=== PATIENT | female | born 1970 | race Caucasian/White ===

== ENCOUNTER 2020-11-02 16:45 | Emergency (ER) | payer OTHER, SELFPAY ==
[2020-11-02 16:54] VITALS: BP 124/88; PULSE 97; O2SAT 98
[2020-11-02 18:02] VITALS: BP 124/85; PULSE 98; RESP 18; TEMP 37; O2SAT 95; BMI 53.6
--- NOTE | 2020-11-02 18:09 | ED.GENADULT ---
HPI - General Adult General Chief complaint: General Medical Stated complaint: INSOMNIA X 5 DAYS,TOOK EXTRA SLEEP MEDS Time Seen by Provider: 11/02/20 18:09 History of Present Illness HPI narrative: Patient 50 years old having difficulty sleeping. Patient has not been able to sleep for the last few days. No fever no chills no cough no congestion. Patient normally is on benzo. Patient wanted more benzodiazepine. Related Data Previous Rx's Medication Instructions Recorded cromolyn 4 % eye drops 1 drp OPHTHALMIC (EYE) QID #10 ml 06/26/20 neomycin 3.5 mg/g-polymyxin B 1 applic OPHTHALMIC (EYE) TID #3.5 06/26/20 10,000 unit/g-dexameth 0.1 % eye g oint sumatriptan succinate 50 mg tablet 50 mg PO Q2-4H PRN 30 Days #9 tab 07/02/20 Allergies Allergy/AdvReac Type Severity Reaction Status Date / Time umeclidinium Allergy Unknown nausea Verified 09/15/20 06:49 [Incruse Ellipta] varenicline [From Chantix] Allergy Unknown Palpitation Verified 09/15/20 06:49 s,headache Review of Systems Review of Systems: Constitutional: No Weight loss, No Fever, No Chills, No Night Sweats, No Fatigue, No Malaise ENT/Mouth: No Hearing loss, No Ear Pain, No Nasal Congestion, No Sinus Pain, No Hoarseness, No sore throat, No Rhinorrhea, No Swallowing Difficulty Eyes: No Eye Pain, No Swelling, No Redness, No Foreign Body, No Discharge, No Vision Changes Cardiovascular: No Chest Pain, No SOB, No Dyspnea on Exertion, No Orthopnea, No Edema, No Palpitations Respiratory: No Cough, No Sputum, No Wheezing, No Smoke Exposure, No Dyspnea Gastrointestinal: No Nausea, No Vomiting, No Diarrhea, No Constipation, No abdominal Pain, No Hematochezia, No Melena Genitourinary: no irregular bleeding, No Dysuria, No Urinary Frequency, No Hematuria, No Urinary Incontinence, No Urgency, No Flank Pain, No Urinary Flow Changes, No Hesitancy Musculoskeletal: No joint pain, No Myalgias, No Joint Swelling Skin: No Skin Lesions, No rash Neuro: No Weakness, No Numbness, No Paresthesias, No Loss of Consciousness, No Dizziness, No Headache Psych: No Anxiety/Panic, No Depression, No SI/HI/AH/VH, No Social Issues, Heme/Lymph: No Bruising, No Bleeding,No Lymphadenopathy Endocrine: No Polyuria, No Polydipsia, No Temperature Intolerance [facility] Past Medical History Attestation statement: The following information was validated with the patient. Surgical History History of laparoscopic cholecystectomy History of mammogram History of tubal ligation Family History Family History Father No problems noted. Mother No problems noted. Maternal Grandmother Diabetes Hypertension CVD (cardiovascular disease) Brother No problems noted. Brother No problems noted. Sister No problems noted. Son No problems noted. Daughter No problems noted. Daughter No problems noted. Daughter No problems noted. Social History Social History Advance Directives: No Advance Directives Information Provided: Yes Physical Exam Vital Signs: Vital Signs: Last Vital Signs Temp 98.6 F 11/02/20 18:02 Pulse 98 11/02/20 18:02 Resp 18 11/02/20 18:02 BP 124/85 11/02/20 18:02 Pulse Ox 95 11/02/20 18:02 Body Mass Index 53.6 Appearance: Alert. Oriented X3. No acute distress. Eyes: Pupils equal, round and reactive to light. ENT: Pharynx normal. Neck: Normal inspection. Neck supple. No lymph nodes noted. No crepitus CVS: Normal heart rate and rhythm. Pulses normal. Normal S1 and S2 Respiratory: No respiratory distress. Breath sounds normal. No Wheezing. No rales Abdomen: Soft and nontender. No rigidity. No distention. good BS x4 Skin: Skin warm and dry. Normal skin color. Normal skin turgor. Extremities: No lower extremity edema. Neurovascular intact to all extremities. No Lacerations. No Rash Neuro: Oriented X 3. No motor deficit. No sensory deficit. Moving all extermities. No slurred speech Medical Decision Making MDM Narrative Medical decision making narrative: Patient morbidly obese. Requesting additional benzos to help her sleep. Patient was given prescription for benzos by her primary psychiatrist. [place] that this time given her additional benzos my caused her to have difficulties breathing. Patient does not use her BiPAP patient told to use BiPAP to help her sleep. Told to follow-up with psychiatry on an outpatient basis. Patient awake alert neurologically intact in no distress. There is no change in sleep pattern. There has been an increase in weight. Patient's vital signs are normal. Will discharge patient home. Told to closely follow up on an outpatient basis. Discharge Plan Discharge Clinical Impression: Insomnia Patient Disposition: Home, Self-Care Instructions: Insomnia (ED) Prescriptions: No Action neomycin-polymyxin B-dexameth 3.5 mg/g-10,000 unit/g-0.1 % ointment 1 applic ophthalmic (eye) TID Qty: 3.5 RF: 6 cromolyn 4 % drops 1 drp ophthalmic (eye) QID Qty: 10 RF: 2 sumatriptan succinate 50 mg tablet 50 mg PO Q2-4H PRN (Reason: migraine headache) 30 Days Qty: 9 RF: 6 Referrals: Tatiana Arora MD [Primary Care Provider] - 2 days Print Language: Belgian
== END 2020-11-02 19:03 | disposition left against medical advice (07) ==
PROVIDERS: Emergency Provider Emergency Medicine Emergency Medical Services; PCP Internal Medicine
DX: G47.00 Insomnia, unspecified (principal); Z79.899 Other long term (current) drug therapy
CPT/HCPCS: 99283

== ENCOUNTER → 2020-11-10 10:24 | Outpatient (BNVA) | payer OTHER, SELFPAY | PROVIDERS: PCP Internal Medicine; Visit Provider Internal Medicine Pulmonary Disease | DX: J44.9 Chronic obstructive pulmonary disease, unspecified (principal); R91.8 Other nonspecific abnormal finding of lung field; G47.33 Obstructive sleep apnea (adult) (pediatric) | CPT/HCPCS: 99202 ==

== ENCOUNTER → 2020-12-06 09:03 | Outpatient (REF) | payer OTHER, SELFPAY ==
--- NOTE | 2020-12-06 17:34 | PFT_ITS ---
INDICATION: COPD. SPIROMETRY: The FEV1 to FVC 69% with an FEV1 of 2.01 L, which is 79% predicted and an FVC of 2.91 L, which is 91% predicted. No significant response to bronchodilators noted. To note, the [id number] is decreased down to 49% prior to bronchodilators. Maximum voluntary ventilation 84% predicted. LUNG VOLUMES: Total lung capacity 106% predicted with a residual volume of 133% predicted, and an expiratory reserve volume of 28% predicted likely from an elevated BMI. DIFFUSION CAPACITY: DLCO 78% predicted. COMPARISON: None available. INTERPRETATION: There is an obstructive ventilatory defect consistent with [id number] COPD. No significant response to bronchodilators noted and normal maximum voluntary ventilation. The patient's lung volumes demonstrate a decrease in the expiratory reserve volume secondary to an elevated BMI in an elevation of the residual volume consistent with air trapping. The patient also has mild diffusion impairment. Clinical correlation warranted. MD PIPPA Mccormick/BRENDA / [id number]
== END ==
LOC: HO.SL 09:03
PROVIDERS: PCP Internal Medicine; Visit Provider Internal Medicine Pulmonary Disease
DX: G47.33 Obstructive sleep apnea (adult) (pediatric) (principal); E66.9 Obesity, unspecified; J44.9 Chronic obstructive pulmonary disease, unspecified; R06.89 Other abnormalities of breathing; R06.83 Snoring
CPT/HCPCS: 94060; 94727; 94729; 95806

== ENCOUNTER 2020-12-29 08:57 | Outpatient (REF) | payer OTHER, SELFPAY | END 2020-12-29 08:58 | disposition home or self-care (01) | LOC: HO.RESP 08:57 | PROVIDERS: PCP Internal Medicine; Visit Provider Internal Medicine Pulmonary Disease | DX: J44.9 Chronic obstructive pulmonary disease, unspecified (principal); G47.33 Obstructive sleep apnea (adult) (pediatric); R91.8 Other nonspecific abnormal finding of lung field | CPT/HCPCS: 99212 ==

== ENCOUNTER 2021-01-24 09:15 | Outpatient (REF) | payer OTHER, SELFPAY ==
--- NOTE | ~2021-01-24 | CT_ITS ---
EXAMINATION: CT CHEST WITHOUT CONTRAST CLINICAL INFORMATION: Nonspecific abnormal finding of the lungs. COMPARISON: Chest x-ray 05/07/2019 TECHNIQUE: Multidetector volumetric CT imaging of the chest was done. Axial MIP volume rendering provided. Sagittal and coronal reformatted images were obtained. This CT examination was performed using dose optimization techniques as appropriate, variously including the following: *Automated exposure control *Adjustment of mA and/or kV according to patient size (this includes techniques or standardized protocols for targeted exams where dose is matched to indication/reason for exam; i.e. extremities or head) *Use of iterative reconstruction technique DLP: 365 mGy-cm FINDINGS: MEDICAL AFFAIRS MANAGER: Well-expanded lungs. LUNGS: The lungs are well-expanded and clear of acute process. There is no pulmonary nodule, mass, consolidation or groundglass density. There are punctate nodular densities measuring 2 mm in superior right major fissure on axial image 23/4 likely vascular structures. MEDIASTINUM: The thyroid lobes are symmetrical and normal. The central trachea and the bronchi ARE widely patent. Heart size and the great vessels are normal caliber. There are benign pretracheal lymph nodes measuring 1.3 cm in short axis on axial image 20/3. No pericardial effusion seen. PLEURA: There is no pleural effusion. No pleural mass or thickening. AXILLA: Small shotty lymph nodes seen in the axilla. The chest wall is unremarkable. UPPER ABDOMEN: The liver is diffusely attenuated without any focal lesion. There is mild hepatomegaly. Visualized spleen, pancreas and bilateral adrenal glands are unremarkable. The gallbladder has been surgically removed. OSSEOUS STRUCTURES: No lytic or sclerotic process seen. There is [id number] spondylosis mid dorsal spine. CT/CT chest wo con IMPRESSION: No acute cardiopulmonary process seen. Especially no lung nodules or mass or consolidation. Benign lymph nodes in the mediastinum, as described above. Mild hepatic steatosis with mild hepatomegaly. No focal lesion.
== END 2021-01-24 09:16 | disposition home or self-care (01) ==
LOC: HO.CT 09:15
PROVIDERS: Visit Provider Internal Medicine Pulmonary Disease
DX: R91.8 Other nonspecific abnormal finding of lung field (principal)
CPT/HCPCS: 71250

== ENCOUNTER 2021-05-12 08:25 | Outpatient (REF) | payer OTHER, SELFPAY | END 2021-05-12 08:26 | disposition home or self-care (01) | LOC: HO.HOSX 08:25 | PROVIDERS: Visit Provider Orthopaedic Surgery | DX: Z13.89 Encounter for screening for other disorder (principal) ==

== ENCOUNTER 2021-06-03 21:05 | Emergency (ER) | payer OTHER, SELFPAY ==
[2021-06-03 21:59] VITALS: BP 116/69; PULSE 97; RESP 20; TEMP 36.4; O2SAT 96; BMI 54.3
--- NOTE | 2021-06-04 00:14 | ED.GENADULT ---
HPI - General Adult General Chief complaint: Wound/Laceration Stated complaint: Lump on breast Time Seen by Provider: 06/03/21 23:23 Source: patient Mode of arrival: ambulatory History of Present Illness HPI narrative: 50-year-old female with a past medical history of bipolar, depression, anxiety, diabetes, insomnia, migraines, obesity, urge incontinence, presenting to the ED complaining of acute on chronic right breast lump with pain, also reports left breast lump. Reports symptoms have been present since September, saw PCP who recommended mammogram but patient refusing 2/2 pain of exam, requested ultrasound, states waiting for US appointment. Denies nipple discharge, skin changes, fever, chills, SOB/CP. Also reports mechanical fall last night while trying to kill a mice with broomstick, fell on buttocks, denies head trauma or LOC. Reports bilateral low back pain. Denies radiation of pain, numbness, tingling, weakness, new urinary incontinence/retention Related Data Home Medications Medication Instructions Recorded Confirmed aripiprazole 15 mg tablet 15 mg PO QAM 10/13/20 04/27/21 neomycin 3.5 mg/g-polymyxin B 1 appl OPHTHALMIC (EYE) PRN g 10/13/20 04/27/21 10,000 unit/g-dexameth 0.1 % eye oint bupropion HCl 150 mg 24 hr tablet, 150 mg PO QAM 04/27/21 04/27/21 extended release hydroxyzine pamoate 25 mg capsule 25 mg PO DAILY PRN 04/27/21 04/27/21 zolpidem 10 mg tablet 10 mg PO BEDTIME 04/27/21 04/27/21 Previous Rx's Medication Instructions Recorded albuterol sulfate 2.5 mg INHALATION Q4-6H PRN 30 10/13/20 Days #75 ml miscellaneous medical supply #1 ea 10/13/20 selenium sulfide 1 % shampoo 5 ml TOPICAL 2XW 14 Days #207 ml 10/13/20 (Dandruff Shampoo (selenium sulfide)) incontinence pad, liner, disp #60 ea 12/31/20 (Bladder Control Pads) pull-ups adult #120 ea 12/31/20 shower seat #1 ea 12/31/20 underpads (Bed Underpads) #60 ea 12/31/20 versaframe #1 ea 12/31/20 walker #1 ea 01/24/21 albuterol sulfate 90 mcg/actuation 1 puff PO QID PRN #8.5 ea 04/17/21 aerosol inhaler albuterol sulfate 2.5 mg INHALATION Q4-6H PRN 30 04/27/21 Days #75 ml blood sugar diagnostic (FreeStyle #50 ea 04/27/21 Test) blood-glucose meter (FreeStyle #1 ea 04/27/21 Benedict Lite) cromolyn 4 % eye drops 1 drp OPHTHALMIC (EYE) QID #10 ml 04/27/21 hydrocortisone 2.5 % topical cream 1 appl TOPICAL BID PRN 30 Days #28 04/27/21 g lancets 28 gauge (FreeStyle #100 ea 04/27/21 Lancets) neomycin 3.5 mg/g-polymyxin B 0.5 inch OPHTHALMIC (EYE) TID 14 04/27/21 10,000 unit/g-dexameth 0.1 % eye Days #3.5 g oint sumatriptan succinate 50 mg tablet 50 mg PO Q2-4H PRN 30 Days #9 tab 04/27/21 tiotropium 2.5 mcg-olodaterol 2.5 2 puff INHALATION DAILY 30 Days #1 04/27/21 mcg/actuation mist for inhalation ea (Stiolto Respimat) acetaminophen 500 mg tablet 500 mg PO Q6H PRN #20 tab 06/04/21 (Tylenol Extra Strength) cyclobenzaprine 5 mg tablet 5 mg PO Q8H PRN 5 Days #14 tab 06/04/21 lidocaine 5 % topical patch 1 patch TOPICAL DAILY PRN #30 ea 06/04/21 (Lidoderm) MDD remove after 12 hours Allergies Allergy/AdvReac Type Severity Reaction Status Date / Time umeclidinium Allergy Intermediate nausea Verified 04/27/21 08:46 [Incruse Ellipta] varenicline [From Chantix] Allergy Intermediate Palpitation Verified 04/27/21 08:46 s,headache Review of Systems Review of Systems: Constitutional: No Fever, No Chills, No Fatigue, No Malaise ENT/Mouth: No Ear Pain, No Nasal Congestion, No Hoarseness, No sore throat Eyes: No Eye Pain, No Swelling, No Redness Cardiovascular: No Chest Pain, No SOB, No Edema, No Palpitations Respiratory: No Cough, No Dyspnea Gastrointestinal: No Nausea, No Vomiting, No Diarrhea, No Constipation, No Abdominal pain Genitourinary: No Dysuria, No Urinary Frequency, No Hematuria, No Urinary Incontinence/retention, No Urinary Flow Changes Musculoskeletal: +back pain, No Myalgias, No Joint Swelling Skin: + bilateral breast lumps and breast pain, No rash Neuro: No Weakness, No Numbness, No Paresthesias, No Loss of Consciousness, No Dizziness, No Headache Yes all other systems are reviewed and are negative Neurologic: Denies Sensory deficit (Neuro) [facility], [facility] Past Medical History Attestation statement: The following information was validated with the patient. Medical History (Updated 06/04/21 @ 00:19 by SHEILA Escalera) Bipolar 1 disorder Breast mass, right Depression with anxiety Diabetes mellitus Insomnia Left breast mass Lumbar degenerative disc disease Migraines Mild asthma Morbid obesity due to excess calories Obese Psoriasiform dermatitis Right shoulder pain Screening for breast cancer Seborrheic dermatitis Urge urinary incontinence Surgical History History of laparoscopic cholecystectomy History of mammogram History of tubal ligation S/P cholecystectomy Tubal ligation status Family History Family History Father No problems noted. Mother No problems noted. Maternal Grandmother Diabetes Hypertension CVD (cardiovascular disease) Brother No problems noted. Brother No problems noted. Sister No problems noted. Son No problems noted. Daughter No problems noted. Daughter No problems noted. Daughter No problems noted. Social History Social History Housing: Apartment Alcohol intake: never Patient Tobacco Use Status: Current everyday Tobacco user Tobacco use type: Cigarette Cigarettes Per Day: 15 e-Cigarette/Vaping Use: Never Used Second Hand Smoke Exposure: No Advance Directives: No Advance Directives Information Provided: No service: No Current occupational status: disabled Physical Exam Vital Signs: Vital Signs: Last Vital Signs Temp 97.6 F 06/03/21 21:59 Pulse 97 06/03/21 21:59 Resp 20 06/03/21 21:59 BP 116/69 06/03/21 21:59 Pulse Ox 96 06/03/21 21:59 Body Mass Index 54.3 Const: General: cooperative, healthy appearing and no acute distress Orientation/consciousness: patient oriented x3 Limitations: no limitations HENMT: Head: Yes normal to inspection Ears: hearing grossly normal bilaterally General nose exam: Normal external nose present Face and sinus: Yes normal facial exam Eyes: General: appearance normal, both eyes and all related structures EOM: EOMs intact bilaterally Neck: Neck: Yes normal visual inspection Chest: Other: Right breast with palpable mass at 12 o'clock region beneath the nipple, tender to palpation, no skin changes, no nipple discharge or cellulitis. Left breast with palpable mass at 1 o'clock position, nontender, no skin changes/dimpling or nipple discharge No appreciable lymphadenopathy Resp: Effort & Inspection: normal respiratory effort and no respiratory distress Cardio: Rate: regular rate Heart sounds: S1 normal heart sound present and S2 normal heart sound present GI: Inspection: Yes normal to inspection Palpation (GI): Soft to palpation, nontender, no guarding and not rigid Back/Spine/Pelvis: Other: No midline thoracic/lumbar spinous tenderness. Bilateral lumbar paraspinal tenderness to palpation Skin: Rashes: no rashes Wounds: no wounds Neuro: Other: No saddle anesthesia, strength intact throughout, sensation intact to light touch, ambulating with steady gait General: patient oriented x3, gait normal, tone normal and moves all extremities Gait exam (Neuro): Normal gait present Motor exam (neuro): 5/5 motor strength present throughout Sensory Exam: No Sensory deficit (Neuro) Extrem: General: Yes normal to inspection Medical Decision Making MDM Narrative Medical decision making narrative: 50-year-old female with a past medical history of bipolar, depression, anxiety, diabetes, insomnia, migraines, obesity, urge incontinence, presenting to the ED complaining of acute on chronic right breast lump with pain, also reports left breast lump. Also reports mechanical fall last night while trying to kill a mice with broomstick, fell on buttocks, denies head trauma or LOC. on exam vital signs stable, NAD, physical exam as above. Bilateral appreciate a breast masses with out skin changes. No midline spinous tenderness or red flag symptoms. Discussed at length with patient importance a mammogram/ultrasound and possibility of breast cancer as diagnosis the patient needs to be diligent with follow-up. Concern for MSK pain/contusion. Low concern for fracture, cauda equina/cord compression Plan: Symptomatic treatment, PCP follow-up Discharge Plan Discharge Clinical Impression: Breast lump or mass Back pain Qualifiers: Back pain location: low back pain Chronicity: acute Back pain laterality: bilateral Sciatica presence: without sciatica Qualified Code(s): M54.50 - Low back pain, unspecified Patient Disposition: Home, Self-Care Instructions: Breast Cancer in Women (DC), Breast Mass (ED) Additional Instructions: You need a breast ultrasound, you really need a mammogram, you could have breast cancer however you need these lumps evaluated with imaging Is very important to call your doctor to establish these studies that need to be done If pain persists or worsens/becomes unbearable, you have skin changes, drainage from her nipple, fever, chills or area begins look infected please return to the ED Your back pain is likely musculoskeletal Flexeril is a muscle relaxer, take at night as it makes you drowsy, do not drive, drink alcohol, or operate machinery while taking it Lidoderm patches are numbing patches, apply to painful area In addition take Tylenol at home If symptoms persist or worsen, pain becomes unbearable, you developed urinary retention or incontinence, or weakness return to the ED Necesita jorge ecograf?a de mama, realmente necesita jorge mamograf?a, podr?a tener c?ncer de mama, sin embargo, necesita estos bultos evaluados con im?genes. Es muy importante llamar a russo m?dico para establecer estos estudios que deben realizarse Si el dolor persiste o empeora / se vuelve insoportable, tiene cambios en la piel, secreci?n del pez?n, fiebre, escalofr?os o el ?curt comienza a verse infectada, regrese al servicio de urgencias. Es probable que russo dolor de espalda sea musculoesquel?diensh Flexeril es un relajante muscular, t?levy por la noche ya que le produce somnolencia, no conduzca, no marguerite alcohol ni utilice maquinaria mientras lo dwayne. Los parches de Lidoderm son parches que adormecen, se aplican al ?curt dolorida Adem?s, tome Tylenol en casa. Si los s?ntomas persisten o empeoran, el dolor se vuelve insoportable, desarroll? retenci?n urinaria o incontinencia o debilidad, regrese al servicio de urgencias Prescriptions: New acetaminophen [Tylenol Extra Strength] 500 mg tablet 500 mg PO Q6H PRN (Reason: pain or fever) Qty: 20 RF: 0 lidocaine [Lidoderm] 5 % adhesive patch,medicated 1 patch topical DAILY MDD remove after 12 hours PRN (Reason: pain) Qty: 30 RF: 0 cyclobenzaprine 5 mg tablet 5 mg PO Q8H PRN (Reason: pain (scale score 7-10)) 5 Days Qty: 14 RF: 0 No Action (DME) underpads [Bed Underpads] Pad See Rx Instructions .ROUTE .MEDSUPPLY Qty: 60 RF: 11 (DME) pull-ups adult XXX-large See Rx Instructions .Route .MEDSUPPLY Qty: 120 RF: 11 (DME) Bladder Control Pads Pad See Rx Instructions .ROUTE .MEDSUPPLY Qty: 60 RF: 11 (DME) versaframe See Rx Instructions .Route .MEDSUPPLY Qty: 1 RF: 0 (DME) shower seat See Rx Instructions .Route .MEDSUPPLY Qty: 1 RF: 0 (DME) walker Misc See Rx Instructions .ROUTE .MEDSUPPLY Qty: 1 RF: 0 albuterol sulfate 90 mcg/actuation HFA aerosol inhaler 1 puff PO QID PRN (Reason: for wheezing) Qty: 8.5 RF: 6 neomycin-polymyxin B-dexameth 3.5 mg/g-10,000 unit/g-0.1 % ointment 1 appl ophthalmic (eye) PRNRF: 0 aripiprazole 15 mg tablet 15 mg PO QAM RF: 0 (DME) miscellaneous medical supply Misc See Rx Instructions .ROUTE .MEDSUPPLY Qty: 1 RF: 0 albuterol sulfate 2.5 mg /3 mL (0.083 %) solution for nebulization 2.5 mg inhalation Q4-6H PRN (Reason: shortness of breath or wheezing) 30 Days Qty: 75 RF: 3 Dandruff Shampoo (selenium) 1 % shampoo 5 ml topical 2XW 14 Days Qty: 207 RF: 3 hydroxyzine pamoate 25 mg capsule 25 mg PO DAILY PRNRF: 0 zolpidem 10 mg tablet 10 mg PO BEDTIME RF: 0 bupropion HCl 150 mg tablet extended release 24 hr 150 mg PO QAM RF: 0 cromolyn 4 % drops 1 drp ophthalmic (eye) QID Qty: 10 RF: 2 hydrocortisone 2.5 % cream 1 appl topical BID PRN (Reason: skin irritation) 30 Days Qty: 28 RF: 3 neomycin-polymyxin B-dexameth 3.5 mg/g-10,000 unit/g-0.1 % ointment 0.5 inch ophthalmic (eye) TID 14 Days Qty: 3.5 RF: 6 albuterol sulfate 2.5 mg /3 mL (0.083 %) solution for nebulization 2.5 mg inhalation Q4-6H PRN (Reason: shortness of breath or wheezing) 30 Days Qty: 75 RF: 6 sumatriptan succinate 50 mg tablet 50 mg PO Q2-4H PRN (Reason: migraine headache) 30 Days Qty: 9 RF: 6 Stiolto Respimat 2.5-2.5 mcg/actuation mist 2 puff inhalation DAILY 30 Days Qty: 1 RF: 6 (DME) FreeStyle Test Strip See Rx Instructions .ROUTE .MEDSUPPLY Qty: 50 RF: 11 (DME) blood-glucose meter [FreeStyle Benedict Lite] Kit See Rx Instructions .ROUTE .MEDSUPPLY Qty: 1 RF: 0 (DME) lancets [FreeStyle Lancets] 28 gauge misc See Rx Instructions .ROUTE .MEDSUPPLY Qty: 100 RF: 3 Referrals: Tatiana Arora MD [Primary Care Provider] - 2 days Interventions: ED Discharge Assessment Last Done: 06/04/21 00:23 Discharge Date/Time: 06/04/21 00:43 Print Language: Divehi
== END 2021-06-04 00:43 | disposition home or self-care (01) ==
PROVIDERS: Emergency Provider Student in an Organized Health Care Education/Training Program; PCP Internal Medicine
DX: N63.10 Unspecified lump in the right breast, unspecified quadrant (principal); N63.20 Unspecified lump in the left breast, unspecified quadrant; M54.50 Low back pain, unspecified; E11.9 Type 2 diabetes mellitus without complications; Z91.81 History of falling
CPT/HCPCS: 99283

== ENCOUNTER 2021-10-19 15:23 | Outpatient (REF) | payer OTHER, SELFPAY ==
--- NOTE | ~2021-10-19 | US_ITS ---
EXAMINATION: US VENOUS WITH DOPPLER UPPER EXTREMITY, RIGHT CLINICAL INFORMATION: Pain COMPARISON: None TECHNIQUE: Ultrasound of the upper extremity is performed using compression sonography and color and pulse Doppler flow with assessment of augmentation of flow. There is also imaging and Doppler assessment of the jugular and subclavian veins. Spectral analysis with color-flow imaging is performed. FINDINGS: Respiratory variation, normal compression, and augmented flow are noted throughout the upper extremity including the axillary, brachial, cubital, and radial and ulnar veins. There is normal flow in the internal jugular and subclavian veins. There is no visible deep or superficial thrombophlebitis. There is right cervical lymphadenopathy. US/US venous duplex UE RT IMPRESSION: No DVT demonstrated in the right upper extremity. Right cervical lymphadenopathy.
== END 2021-10-19 15:24 | disposition home or self-care (01) ==
LOC: HO.US 15:23
PROVIDERS: PCP Internal Medicine; Visit Provider Internal Medicine
DX: M25.562 Pain in left knee (principal); M79.601 Pain in right arm; M25.561 Pain in right knee
CPT/HCPCS: 93971

== ENCOUNTER 2021-10-25 11:54 | Outpatient (REF) | payer OTHER, SELFPAY ==
--- NOTE | ~2021-10-25 | XR_ITS ---
EXAMINATION: BILATERAL KNEE. CLINICAL INFORMATION: Bilateral knee pain COMPARISON: None TECHNIQUE: 3 views each knee. FINDINGS: LEFT KNEE: There is loss of medial and patellofemoral compartment joint space with minimal periarticular spurring.. No loose bodies, fracture or bony erosive changes seen. There is no abnormal suprapatellar joint effusion. The soft tissues are normal. RIGHT KNEE: There is loss of medial and patellofemoral compartment joint space with mild periarticular spurring. No loose bodies, bony erosive changes or joint effusion seen. No acute fracture or dislocation. XR/XR knee LT 3V IMPRESSION: Degenerative arthritic changes medial and lateral compartment both knees. No visible acute fracture or dislocation seen.
--- NOTE | ~2021-10-25 | XR_ITS ---
EXAMINATION: BILATERAL KNEE. CLINICAL INFORMATION: Bilateral knee pain COMPARISON: None TECHNIQUE: 3 views each knee. FINDINGS: LEFT KNEE: There is loss of medial and patellofemoral compartment joint space with minimal periarticular spurring.. No loose bodies, fracture or bony erosive changes seen. There is no abnormal suprapatellar joint effusion. The soft tissues are normal. RIGHT KNEE: There is loss of medial and patellofemoral compartment joint space with mild periarticular spurring. No loose bodies, bony erosive changes or joint effusion seen. No acute fracture or dislocation. XR/XR knee RT 3V IMPRESSION: Degenerative arthritic changes medial and lateral compartment both knees. No visible acute fracture or dislocation seen.
--- NOTE | 2021-10-25 12:03 | ECG_ITS ---
Test Reason : CHEST PAIN Blood Pressure : / mmHG Vent. Rate : 095 BPM Atrial Rate : 095 BPM P-R Int : 140 ms QRS Dur : 074 ms QT Int : 358 ms P-R-T Axes : 076 060 071 degrees QTc Int : 449 ms Normal sinus rhythm Normal ECG When compared to the previous EKG of No significant changes seen Referred By: Tatiana Pina Electronically Signed By:Ye Acevedo
== END 2021-10-25 11:55 | disposition home or self-care (01) ==
LOC: HO.XRAY 11:54
PROVIDERS: PCP Internal Medicine; Visit Provider Internal Medicine
DX: R07.9 Chest pain, unspecified (principal); M25.562 Pain in left knee; M25.561 Pain in right knee
CPT/HCPCS: 73562; 93005

== ENCOUNTER 2021-10-26 08:40 | Outpatient (REF) | payer OTHER, SELFPAY ==
[2021-10-26 10:39] LABS: Cholesterol 214 mg/dL; HDL Cholesterol 40 mg/dL; LDL Cholesterol Calculated 154 mg/dl; Triglycerides 102 mg/dL
[2021-10-26 10:58] LABS: Creatinine Urine 141.33 mg/dL; Microalbum/Creatinine Ratio Ur 6.3 ug/mg cr
[2021-10-26 11:38] LABS: Thyroid Stimulating Hormone 2.45 uIU/mL (0.32-4.0)
[2021-10-27 14:29] LABS: Vitamin D 25-OH Total 13.5 ng/mL (>30)
== END 2021-10-26 08:41 | disposition home or self-care (01) ==
LOC: HO.LAB 08:40
PROVIDERS: PCP Internal Medicine; Visit Provider Internal Medicine
DX: Z00.00 Encounter for general adult medical examination without abnormal findings (principal); E11.9 Type 2 diabetes mellitus without complications; E55.9 Vitamin D deficiency, unspecified; E78.5 Hyperlipidemia, unspecified; R63.4 Abnormal weight loss
CPT/HCPCS: 36415; 80061; 82043; 82306; 84443

== ENCOUNTER 2021-11-16 20:33 | Emergency (ER) | payer OTHER, SELFPAY | END 2021-11-16 23:23 | disposition left against medical advice (07) | PROVIDERS: Emergency Provider Emergency Medicine; PCP Internal Medicine | DX: M79.645 Pain in left finger(s) (principal); M79.644 Pain in right finger(s) ==

== ENCOUNTER 2021-11-26 17:28 | Emergency (ER) | payer OTHER, SELFPAY ==
--- NOTE | ~2021-11-26 | XR_ITS ---
EXAMINATION: XR SHOULDER, RIGHT CLINICAL INFORMATION: Pain. Decreased movement. COMPARISON: None TECHNIQUE: Three views of the right shoulder. FINDINGS: No acute fracture or dislocation. Small marginal osteophytes along the acromioclavicular joint. Calcific rotator cuff tendinopathy. Soft tissues otherwise unremarkable. XR/XR shoulder RT min 2V IMPRESSION: No acute findings.
[2021-11-26 17:44] VITALS: BP 128/90; PULSE 102; RESP 20; TEMP 36; O2SAT 98; BMI 49.4
--- NOTE | 2021-11-26 18:29 | ED.EXTPRO ---
HPI - Extremity Problem General Chief complaint: Extremity Problem Stated complaint: Right arm pain Time Seen by Provider: 11/26/21 18:29 Source: patient Mode of arrival: ambulatory History of Present Illness HPI Narrative: 51-year-old female with a past medical history of bipolar, depression, anxiety, diabetes, insomnia, migraines, obesity, presenting to the ED complaining of acute on chronic right shoulder pain now radiating to right neck, down right arm and to right anterior chest wall, worsening over the past 3 days. Admits to associated paresthesias/tingling in RUE which is acute on chronic. Denies recent injury/trauma or fall. Has been taking Tylenol and muscle relaxers without relief. Reports pain worse with ROM. Denies weakness, fever, chills, SOB MD Complaint: extremity pain Onset (ago): day(s) Pain Consistency: constant Related Data Home Medications Medication Instructions Recorded Confirmed aripiprazole 15 mg tablet 15 mg PO QAM 10/13/20 10/26/21 hydroxyzine pamoate 25 mg capsule 25 mg PO DAILY PRN 04/27/21 10/26/21 zolpidem 10 mg tablet 10 mg PO BEDTIME 04/27/21 10/26/21 bupropion HCl 300 mg 24 hr tablet, 300 mg PO QAM 10/19/21 10/26/21 extended release latanoprost 0.005 % eye drops 1 drp OPHTHALMIC (EYE) BEDTIME 10/19/21 10/26/21 Previous Rx's Medication Instructions Recorded miscellaneous medical supply #1 ea 10/13/20 incontinence pad, liner, disp #60 ea 12/31/20 (Bladder Control Pads) pull-ups adult #120 ea 12/31/20 shower seat #1 ea 12/31/20 versaframe #1 ea 12/31/20 blood sugar diagnostic (FreeStyle #50 ea 04/27/21 Test) blood-glucose meter (FreeStyle #1 ea 04/27/21 [place] Lite) cromolyn 4 % eye drops 1 drp OPHTHALMIC (EYE) QID #10 ml 04/27/21 hydrocortisone 2.5 % topical cream 1 appl TOPICAL BID PRN 30 Days #28 04/27/21 g lancets 28 gauge (FreeStyle #100 ea 04/27/21 Lancets) tiotropium 2.5 mcg-olodaterol 2.5 2 puff INHALATION DAILY 30 Days #1 04/27/21 mcg/actuation mist for inhalation ea (Stiolto Respimat) albuterol sulfate 2.5 mg (3 mL) INHALATION Q4-6H PRN 10/19/21 30 Days #75 ml albuterol sulfate 90 mcg/actuation 1 puff PO QID PRN #8.5 ea 10/19/21 aerosol inhaler neomycin 3.5 mg/g-polymyxin B 0.5 inch OPHTHALMIC (EYE) TID 14 10/19/21 10,000 unit/g-dexameth 0.1 % eye Days #3.5 g oint sulfamethoxazole 800 1 tab PO BID 10 Days #20 tab 10/19/21 mg-trimethoprim 160 mg tablet (Bactrim DS) sumatriptan succinate 50 mg tablet 50 mg PO Q2-4H PRN 30 Days #9 tab 10/19/21 underpads (Bed Underpads) #60 ea 10/19/21 walker #1 ea 10/19/21 calcitriol 0.5 mcg capsule 0.5 mcg PO DAILY 90 Days #90 cap 10/27/21 acetaminophen 500 mg tablet 500 mg PO Q6H PRN #14 tab 11/26/21 (Tylenol Extra Strength) cyclobenzaprine 5 mg tablet 5 mg PO Q8H PRN 5 Days #14 tab 11/26/21 lidocaine 5 % topical patch 1 patch TOPICAL DAILY PRN #30 ea 11/26/21 (Lidoderm) MDD remove after 12 hours naproxen 500 mg tablet 500 mg PO BID PRN 10 Days #20 tab 11/26/21 Allergies Allergy/AdvReac Type Severity Reaction Status Date / Time umeclidinium Allergy Intermediate nausea Verified 10/26/21 08:57 [Incruse Ellipta] varenicline [From Chantix] Allergy Intermediate Palpitation Verified 10/26/21 08:57 s,headache Review of Systems Review of Systems: Constitutional: No Weight loss, No Fever, No Chills ENT/Mouth: No Ear Pain, No Nasal Congestion, No sore throat, No Rhinorrhea, No Swallowing Difficulty Cardiovascular: No Chest Pain, No SOB Respiratory: No Cough, No Sputum, No Wheezing Gastrointestinal: No Nausea, No Vomiting, No Diarrhea, No Constipation, No Abdominal pain Genitourinary:, No Dysuria, No Urinary Frequency, No Hematuria, No Urinary Incontinence, No Urgency, No Flank Pain Musculoskeletal: + joint pain, No Myalgias, No Joint Swelling Skin: No Skin Lesions, No rash Neuro: No Weakness, + Numbness, + Paresthesias Yes all other systems are reviewed and are negative Neurologic: Denies Sensory deficit (Neuro) [facility] Past Medical History Attestation statement: The following information was validated with the patient. Medical History Abscess Bipolar 1 disorder Breast mass, right Cervical lymphadenopathy Chest pain Coarse tremors Depression with anxiety Diabetes mellitus Hypovitaminosis D Insomnia Left breast mass Left knee pain Lumbar degenerative disc disease Migraines Mild asthma Morbid obesity due to excess calories Obese Physical exam Psoriasiform dermatitis Right knee pain Right shoulder pain Right upper limb pain Screening for breast cancer Seborrheic dermatitis Skin lesion Unintentional weight loss Urge urinary incontinence Surgical History History of laparoscopic cholecystectomy History of mammogram History of tubal ligation S/P cholecystectomy Tubal ligation status Family History Family History Father Stomach cancer Mother No problems noted. Maternal Grandmother Diabetes Hypertension CVD (cardiovascular disease) Brother No problems noted. Brother No problems noted. Sister No problems noted. Son No problems noted. Daughter No problems noted. Daughter No problems noted. Daughter No problems noted. Social History Social History Household Members: None Housing: House Are you a primary caretaker grounds to a significant other at home: No Do you presently have visiting nurse or other home services: No Alcohol intake: never Patient Tobacco Use Status: Current everyday Tobacco user Tobacco use type: Cigarette Cigarette Packs Per Day: 1 e-Cigarette/Vaping Use: Never Used Second Hand Smoke Exposure: No Advance Directives: No Advance Directives Information Provided: No service: No Current occupational status: disabled Physical Exam Vital Signs: Vital Signs: Last Vital Signs Temp 96.8 F 11/26/21 17:44 Pulse 102 H 11/26/21 17:44 Resp 20 11/26/21 17:44 BP 128/90 H 11/26/21 17:44 Pulse Ox 98 11/26/21 17:44 BMI result Body Mass Index 49.4 Const: Other: Tearful General: cooperative, healthy appearing, no acute distress and well developed Orientation/consciousness: patient oriented x3 Limitations: no limitations HEENT: Head: Yes normal to inspection and Yes atraumatic Ears: hearing grossly normal bilaterally General nose exam: Normal external nose present Face and sinus: Yes normal facial exam Mouth: Normal oral and palatal mucosa present Throat: Yes posterior oropharynx normal, Yes tonsils normal and Yes uvula midline Eyes: General: appearance normal, both eyes and all related structures EOM: EOMs intact bilaterally Neck: Other: No midline cervical spinous tenderness/diaper for deformity. + right-sided trapezius muscle tenderness Neck: Yes normal visual inspection and Yes no meningeal signs Resp: Effort & Inspection: normal respiratory effort and no respiratory distress Cardio: Rate: regular rate Peripheral pulses: radial pulses present GI: Inspection: Yes normal to inspection : General: Yes no CVA tenderness Back/Spine/Pelvis: Other: No midline thoracic/lumbar spinous tenderness/step-off or deformity Back: no CVA tenderness Skin: Rashes: no rashes Wounds: no wounds Neuro: Other: Sensation intact to light touch General: patient oriented x3, gait normal, tone normal and no meningeal signs Cranial nerves: Yes CN's II-XII intact bilaterally Gait exam (Neuro): Normal gait present Sensory Exam: No Sensory deficit (Neuro) Extrem: Other: Right shoulder without noted deformity. No erythema/ecchymosis or crepitus. Tenderness to palpation to deltoid. Decreased ROM to shoulder secondary to pain. Neurovascularly intact distally. Sensation intact to light touch. General: Yes normal to inspection Course Course Course Narrative: XR shoulder RT min 2V IMPRESSION: No acute findings. > results discussed with patient with hardware engineering manager including worrisome signs and symptoms and strict return precautions MDM - Extremity (Nontraumatic) MDM Narrative Medical decision making narrative: 51-year-old female with a past medical history of bipolar, depression, anxiety, diabetes, insomnia, migraines, obesity, presenting to the ED complaining of acute on chronic right shoulder pain now radiating to right neck, down right arm and to right anterior chest wall, worsening over the past 3 days. On exam tachycardic, tearful, tachycardia likely from pain, NAD/nontoxic, physical exam as above. No midline spinous tenderness throughout, no evidence of infection/cellulitis. Concern for arthritis vs tendinitis vs MSK pain/strain. Unlikely cervical dissection/fracture. Symptoms atypical for ACS or PE Plan: EKG, shoulder x-ray Medical Records Attestation: I reviewed the patient's medical records. Lab Data Attestation: I reviewed the patient's lab results. ECG Data Attestation EKG: I personally reviewed and interpreted this ECG as follows: ECG interpretation date: 11/26/21 Prior ECG tracings: available for review Interpretation: EKG normal sinus rhythm at a rate of 95. Pr interval 134. QRS 74. Nonischemic, no STEMI Discharge Plan Discharge Clinical Impression: Chronic shoulder pain Patient Disposition: Home, Self-Care Instructions: Arthralgia (ED) Additional Instructions: Your x-ray shows tendinitis. Your pain is likely musculoskeletal Flexeril is a muscle relaxer, take at night as it makes you drowsy, do not drive, drink alcohol, or operate machinery while taking it Naproxen as an anti-inflammatory / pain medication, take with food Lidoderm patches are numbing patches, apply to painful area In addition take Tylenol at home If symptoms persist or worsen, pain becomes unbearable, you developed urinary retention or incontinence, or weakness return to the ED Rhodes radiograf?a muestra tendinitis. Es probable que rhodes dolor sea musculoesquel?dinesh Flexeril es un relajante muscular, t?herman por la noche ya que te adormece, no conduzcas, bebas alcohol ni operes maquinaria mientras lo adriana. Naproxeno diaz medicamento antiinflamatorio/analg?sico, t?levy con alimentos Los parches de Lidoderm son parches anest?sicos, se aplican en el ?curt dolorida Adem?s dwayne Tylenol en casa Si los s?ntomas persisten o empeoran, el dolor se vuelve insoportable, desarroll? retenci?n urinaria o incontinencia, o debilidad, regrese al servicio de urgencias. Prescriptions: New acetaminophen [Tylenol Extra Strength] 500 mg tablet 500 mg PO Q6H PRN (Reason: pain or fever) Qty: 14 0RF lidocaine [Lidoderm] 5 % adhesive patch,medicated 1 patch topical DAILY MDD remove after 12 hours PRN (Reason: pain) Qty: 30 0RF Rx Instructions: leave on most painful area for up to 12 hrs naproxen 500 mg tablet 500 mg PO BID PRN (Reason: pain) 10 Days Qty: 20 0RF cyclobenzaprine 5 mg tablet 5 mg PO Q8H PRN (Reason: pain (scale score 7-10)) 5 Days Qty: 14 0RF No Action (DME) pull-ups adult XXX-large See Rx Instructions .Route .MEDSUPPLY Qty: 120 11RF Rx Instructions: As directed (DME) Bladder Control Pads Pad See Rx Instructions .ROUTE .MEDSUPPLY Qty: 60 11RF Rx Instructions: Use 1 pad twice a day as needed (DME) versaframe See Rx Instructions .Route .MEDSUPPLY Qty: 1 0RF Rx Instructions: As directed (DME) shower seat See Rx Instructions .Route .MEDSUPPLY Qty: 1 0RF Rx Instructions: As directed calcitriol 0.5 mcg capsule 0.5 mcg PO DAILY 90 Days Qty: 90 1RF latanoprost 0.005 % drops 1 drp ophthalmic (eye) BEDTIME 0RF bupropion HCl 300 mg tablet extended release 24 hr 300 mg PO QAM 0RF sulfamethoxazole-trimethoprim [Bactrim DS] 800-160 mg tablet 1 tab PO BID 10 Days Qty: 20 0RF (DME) walker Misc See Rx Instructions .ROUTE .MEDSUPPLY Qty: 1 0RF Rx Instructions: As directed (DME) underpads [Bed Underpads] Pad See Rx Instructions .ROUTE .MEDSUPPLY Qty: 60 11RF Rx Instructions: Use 1 underpad twice a day as needed sumatriptan succinate 50 mg tablet 50 mg PO Q2-4H PRN (Reason: migraine headache) 30 Days Qty: 9 6RF Rx Instructions: do not exceed 4 doses per 24 hrs neomycin-polymyxin B-dexameth 3.5 mg/g-10,000 unit/g-0.1 % ointment 0.5 inch ophthalmic (eye) TID 14 Days Qty: 3.5 6RF albuterol sulfate 2.5 mg /3 mL (0.083 %) solution for nebulization 2.5 mg inhalation Q4-6H PRN (Reason: shortness of breath or wheezing) 30 Days Qty: 75 3RF albuterol sulfate 90 mcg/actuation HFA aerosol inhaler 1 puff PO QID PRN (Reason: for wheezing) Qty: 8.5 6RF aripiprazole 15 mg tablet 15 mg PO QAM 0RF (DME) miscellaneous medical supply [facility] [place] See Rx Instructions .ROUTE .MEDSUPPLY Qty: 1 0RF Rx Instructions: As directed hydroxyzine pamoate 25 mg capsule 25 mg PO DAILY PRN (Reason: Allergy Symptoms) 0RF zolpidem 10 mg tablet 10 mg PO BEDTIME 0RF cromolyn 4 % drops 1 drp ophthalmic (eye) QID Qty: 10 2RF hydrocortisone 2.5 % cream 1 appl topical BID PRN (Reason: skin irritation) 30 Days Qty: 28 3RF Stiolto Respimat 2.5-2.5 mcg/actuation mist 2 puff inhalation DAILY 30 Days Qty: 1 6RF (DME) FreeStyle Test Strip See Rx Instructions .ROUTE .MEDSUPPLY Qty: 50 11RF Rx Instructions: Use 1 test strip once a day (DME) blood-glucose meter [FreeStyle [place] Lite] Kit See Rx Instructions .ROUTE .MEDSUPPLY Qty: 1 0RF Rx Instructions: As directed (DME) lancets [FreeStyle Lancets] 28 gauge [facility] [place] See Rx Instructions .ROUTE .MEDSUPPLY Qty: 100 3RF Rx Instructions: Use 1 lancet once a day Referrals: Carin Marie PA-C [Physician Territory Sales Consultant] - 10 days Tatinaa Arora MD [Primary Care Provider] - 5 days Print Language: Kyrgyz
--- NOTE | 2021-11-26 18:40 | ECG_ITS ---
Test Reason : GENERAL MEDICAL Blood Pressure : / mmHG Vent. Rate : 095 BPM Atrial Rate : 095 BPM P-R Int : 134 ms QRS Dur : 074 ms QT Int : 360 ms P-R-T Axes : 068 047 062 degrees QTc Int : 452 ms Normal sinus rhythm Normal ECG When compared with ECG of 25-OCT-2021 12:06, No significant change was found Referred By: Shana Wood Electronically Signed By:LAKISHA CESPEDES MD
[2021-11-26] MEDS: oxyCODONE HCl Immed Release 5 MG TABLET PO (19:25)
[2021-11-26] MEDS: Ketorolac Tromethamine 30 MG/ML VIAL IM (19:25)
== END 2021-11-26 19:31 | disposition home or self-care (01) ==
PROVIDERS: Emergency Provider Emergency Medicine Emergency Medical Services; PCP Internal Medicine
DX: M25.511 Pain in right shoulder (principal); F33.1 Major depressive disorder, recurrent, moderate; E11.9 Type 2 diabetes mellitus without complications; G47.00 Insomnia, unspecified; F17.210 Nicotine dependence, cigarettes, uncomplicated; Z71.6 Tobacco abuse counseling
CPT/HCPCS: 73030; 93005; 96372; 99284; J1885

== ENCOUNTER 2021-12-14 09:00 | Outpatient (REF) | payer OTHER, SELFPAY ==
--- NOTE | ~2021-12-14 | CT_ITS ---
EXAMINATION: CT SOFT TISSUE NECK WITH CONTRAST CLINICAL INFORMATION: 51-year-old with lymphadenopathy and right upper extremity radiculopathy. COMPARISON: None TECHNIQUE: Following the intravenous administration of 60 mL of Omnipaque 350 intravenous contrast, helical imaging was performed in the axial plane with generation of coronal and sagittal reformatted images. This CT examination was performed using dose optimization techniques as appropriate, variously including the following: *Automated exposure control *Adjustment of mA and/or kV according to patient size (this includes techniques or standardized protocols for targeted exams where dose is matched to indication/reason for exam; i.e. extremities or head) *Use of iterative reconstruction technique DLP: 408 mGy-cm FINDINGS: Skull Base: The visualized intracranial structures appear grossly unremarkable within the limitations of the exam. Limited assessment. The visualized calvarium and skull base appears grossly intact. The mastoids and middle ear cavities are unopacified and the visualized paranasal sinuses are clear. There are some calcifications of both carotid siphons. There is normal opacification of the visualized major dural venous sinuses. Suprahyoid Neck: Moderately prominent adenoidal soft tissues are seen in the posterior nasopharynx but appear symmetric and enhance normally, likely reactive. The parapharyngeal spaces and billing machine operator spaces appear symmetric and appear within normal limits. Parotid glands are bilaterally symmetric and are normal in morphology and attenuation. The oropharynx is unremarkable. The submandibular glands appear normal in morphology and attenuation. The visualized oral tongue, base of the tongue and floor of the mouth structures are intact with no definite focal lesion or abnormal enhancement. Scattered, nonenlarged bilateral submandibular space and bilateral suprahyoid IJ chain lymph nodes are noted. Lingual tonsils enhance normally. Epiglottis appears within normal limits. Infrahyoid Neck: The carotid bifurcations and upper common carotid arteries are medially deviated into the right and left retropharyngeal regions. Otherwise the hypopharynx is unremarkable. The larynx appears symmetric. Vocal cords are apposed with suboptimal visualization of the medial borders. Normal appearance to the piriform sinuses. Thyroid gland appears normal. Small, nonenlarged bilateral IJ chain lymph nodes are noted. Upper Chest: Visualized lung parenchyma appears grossly unremarkable. Visualized mediastinum is within normal limits. Skeletal: Straightening of the cervical spine noted with multilevel cervicothoracic spondylosis, with the disc space height loss primarily at C4-C5, C5-C6 and C6-C7. Mild cervicothoracic levocurvature. Otherwise skeletal structures appear intact. Note that this study was not tailored to evaluate the cervical spine and associated spinal canal and neural foramina. Other Comments: None. CT/CT soft tissue neck w con IMPRESSION: 1. No definite cervical lymphadenopathy or soft tissue mass. If clinically warranted, MRI of the cervical spine may be of additional value given the symptoms. 2. Mildly prominent adenoidal soft tissue in the posterior nasopharynx, likely reactive. 3. Multilevel cervical thoracic DDD and spondylosis with mild cervicothoracic levocurvature.
[2021-12-14 09:32] LABS: Blood Urea Nitrogen 11 mg/dL (9-16); Estimated Glomerular Filt Rate > 60
[2021-12-14] MEDS: iohexoL 350 MG/ML 100 ML INFUS..BTL IV (10:49)
== END 2021-12-14 09:01 | disposition home or self-care (01) ==
LOC: HO.CT 09:00
PROVIDERS: PCP Internal Medicine; Visit Provider Internal Medicine
DX: M79.601 Pain in right arm (principal); R59.0 Localized enlarged lymph nodes; N63.20 Unspecified lump in the left breast, unspecified quadrant
CPT/HCPCS: 36415; 70491; 82565; 84520; Q9967

== ENCOUNTER 2022-07-05 00:49 | Emergency (ER) | payer OTHER, SELFPAY ==
--- NOTE | 2022-07-05 | ECG_ITS ---
Test Reason : SOB Blood Pressure : / mmHG Vent. Rate : 116 BPM Atrial Rate : 116 BPM P-R Int : 144 ms QRS Dur : 074 ms QT Int : 346 ms P-R-T Axes : 078 059 076 degrees QTc Int : 480 ms Sinus tachycardia Low voltage QRS Borderline ECG When compared with ECG of 26-NOV-2021 18:53, Heart rate has increased Referred By: Generic ED Physician Electronically Signed By:DONITA TRISTAN MD
--- NOTE | ~2022-07-05 | XR_ITS ---
EXAMINATION: XR CHEST CLINICAL INFORMATION: Inhaled bleach COMPARISON: 01/24/2021 TECHNIQUE: 2 views of the chest were obtained. FINDINGS: Lung volumes are symmetric. No focal consolidation is seen. No evidence of pneumothorax, pleural effusion, or pulmonary edema. The cardiomediastinal contour is unremarkable. Degenerative changes are noted in the spine. XR/XR chest 2V IMPRESSION: No acute cardiopulmonary findings.
[2022-07-05 00:51] VITALS: BP 150/79; PULSE 120; RESP 24; TEMP 36.1; O2SAT 97; BMI 50.5
[2022-07-05 06:00] VITALS: BP 122/63; PULSE 57; RESP 16; TEMP 37.1; O2SAT 95
[2022-07-05 06:09] LABS: MANUAL DIFF FLAG NO
[2022-07-05 06:15] LABS: Basophils Absolute Auto 0.1 X10*3/uL (0.0-0.2); Basophils Percent Auto 0.6 % (0-2); Eosinophils Absolute Auto 0.3 X10*3/uL (0.0-0.4); Eosinophils Percent Auto 2.2 % (0-4); Hematocrit 41.8 % (37.0-47.0); Imm Gran Abs Auto 0.05 X10*3/uL (0.00-0.03); Imm Gran Pct Auto 0.4 % (0.0-0.4); Lymphocytes Absolute Auto 3.1 X10*3/uL (1.2-4.9); Lymphocytes Percent Auto 27.2 % (20-40); Mean Corpuscular HGB Conc 33.5 g/dl (31.0-35.0); Mean Corpuscular Hemoglobin 28.5 pg (27.0-33.0); Mean Platelet Volume 11.1 fL (9.4-12.3); Monocytes Absolute Auto 0.6 X10*3/uL (0.1-1.2); Monocytes Percent Auto 5.6 % (2-11); Neutrophils Absolute Auto 7.2 x10*3/uL (2.0-8.3); Platelet Count 288 X10*3/uL (160-400); Red Blood Count 4.92 X10*6/uL (4.20-5.50); Red Cell Distribution Width 14.1 % (11.0-16.0); White Blood Count 11.3 X10*3/uL (4.8-10.8)
[2022-07-05 06:56] LABS: Alanine Aminotransferase 16 U/L (0-31); Albumin Level 4.3 g/dL (3.5-5.0); Alkaline Phosphatase 62 U/L (39-117); Anion Gap 12 (12-20); Aspartate Amino Transferase 14 U/L (5-31); Bilirubin Total 0.5 mg/dL (0.0-1.0); Blood Urea Nitrogen 8 mg/dL (9-16); Carbon Dioxide 27 mmol/L (22-29); Chloride 95 mmol/L (96-108); Creatinine Clr Calc Pharmacy 114.6; Estimated Glomerular Filt Rate > 60; Glucose Random 128 mg/dL (60-115); Potassium 3.4 mmol/L (3.3-5.1); Sodium 131 mmol/L (135-145); Total Protein 7.7 g/dL (6.5-8.0)
== END 2022-07-05 07:35 | disposition home or self-care (01) ==
LOC: HO.ED 07:36
PROVIDERS: Emergency Provider Internal Medicine; PCP Internal Medicine
DX: T54.91XA Toxic effect of unspecified corrosive substance, accidental (unintentional), initial encounter (principal); J68.0 Bronchitis and pneumonitis due to chemicals, gases, fumes and vapors; Y92.009 Unspecified place in unspecified non-institutional (private) residence as the place of occurrence of the external cause; R07.9 Chest pain, unspecified; R06.02 Shortness of breath
CPT/HCPCS: 36415; 71046; 80053; 85025; 93005; 99283; J8540

== ENCOUNTER 2022-12-25 09:31 | Outpatient (REF) | payer OTHER, SELFPAY ==
[2022-12-25 09:43] LABS: MANUAL DIFF FLAG NO
[2022-12-25 10:13] LABS: Basophils Absolute Auto 0.1 X10*3/uL (0.0-0.2); Basophils Percent Auto 0.6 % (0-2); Eosinophils Absolute Auto 0.4 X10*3/uL (0.0-0.4); Eosinophils Percent Auto 4.1 % (0-4); Hematocrit 42.5 % (37.0-47.0); Hemoglobin 14.2 g/dl (12.0-16.0); Imm Gran Abs Auto 0.03 X10*3/uL (0.00-0.03); Imm Gran Pct Auto 0.3 % (0.0-0.4); Lymphocytes Absolute Auto 2.8 X10*3/uL (1.2-4.9); Lymphocytes Percent Auto 28.8 % (20-40); Mean Corpuscular HGB Conc 33.4 g/dl (31.0-35.0); Mean Corpuscular Hemoglobin 28.9 pg (27.0-33.0); Mean Corpuscular Volume 86.6 fL (80.0-98.0); Mean Platelet Volume 11.1 fL (9.4-12.3); Monocytes Absolute Auto 0.5 X10*3/uL (0.1-1.2); Monocytes Percent Auto 5.1 % (2-11); Neutrophils Percent Auto 61.1 % (45-73); Platelet Count 303 X10*3/uL (160-400); Red Blood Count 4.91 X10*6/uL (4.20-5.50); Red Cell Distribution Width 13.2 % (11.0-16.0); White Blood Count 9.8 X10*3/uL (4.8-10.8)
[2022-12-25 11:03] LABS: Cholesterol 189 mg/dL; HDL Cholesterol 38 mg/dL; LDL Cholesterol Calculated 132 mg/dl; Triglycerides 97 mg/dL
[2022-12-25 11:15] LABS: Rheumatoid Factor < 13.0 IU/mL (<15.0)
[2022-12-25 11:24] LABS: Vitamin D 25-OH Total 24.3 ng/mL (>30)
[2022-12-25 11:41] LABS: Creatinine Urine 249.42 mg/dL; Microalbum/Creatinine Ratio Ur 10.4 ug/mg cr
[2022-12-31 11:19] LABS: Anti Nuclear Antibody Screen NEGATIVE (NEGATIVE)
== END 2022-12-25 09:32 | disposition home or self-care (01) ==
LOC: HO.LAB 09:31
PROVIDERS: PCP Internal Medicine; Visit Provider Internal Medicine
DX: E11.9 Type 2 diabetes mellitus without complications (principal); E55.9 Vitamin D deficiency, unspecified; M25.50 Pain in unspecified joint; E78.5 Hyperlipidemia, unspecified
CPT/HCPCS: 36415; 80061; 82043; 82306; 85025; 86038; 86431

== ENCOUNTER 2023-02-14 10:36 | Outpatient (AMB) | payer OTHER, SELFPAY ==
--- NOTE | 2023-02-14 10:39 | A.OFFVIS_ITS ---
Intake Vital Signs 02/14/23 10:44 Height 5 ft 2 in Weight 284 lb BMI 51.9 BP 130/80 Blood Pressure Location Lt brachial Position Sitting Pulse 90 Pulse Oximetry (%) 96 Intake Visit Reasons: copd Allergies umeclidinium [Incruse Ellipta] Allergy (Intermediate, Verified 02/14/23 10:45) nausea varenicline [From Chantix] Allergy (Intermediate, Verified 02/14/23 10:45) Palpitations,headache HPI copd HPI Details 52-year-old lady, active 35+ pack-year smoker, obese, followed for un derlying asthma/COPD overlap syndrome and severe obstructive sleep apnea.? Patient continues to use Stiolto and albuterol MDI with good control of her underlying symptoms. Patient has not been compliant with his CPAP as she is not able to tolerate fullface mask. She is interested in trying nasal mask. She denies recent exacerbations. [facility] Medical History Abscess Bipolar 1 disorder Breast mass, right Cervical lymphadenopathy Chest pain Coarse tremors Depression with anxiety Diabetes mellitus Hypovitaminosis D Insomnia Left breast mass Left knee pain Lumbar degenerative disc disease Migraines Mild asthma Morbid obesity due to excess calories Obese Physical exam Psoriasiform dermatitis Right knee pain Right shoulder pain Right upper limb pain Screening for breast cancer Seborrheic dermatitis Skin lesion Unintentional weight loss Urge urinary incontinence Surgical History History of laparoscopic cholecystectomy History of mammogram History of tubal ligation S/P cholecystectomy Tubal ligation status Family History Father Stomach cancer Mother No problems noted. Maternal Grandmother Diabetes Hypertension CVD (cardiovascular disease) Brother No problems noted. Brother No problems noted. Sister No problems noted. Son No problems noted. Daughter No problems noted. Daughter No problems noted. Daughter No problems noted. Social History Household Members: None Housing: House Are you a primary child care associate teacher to a significant other at home: No Do you presently have visiting nurse or other home services: No Alcohol intake: never Patient Tobacco Use Status: Current everyday Tobacco user Tobacco use type: Cigarette Cigarette Packs Per Day: 1 e-Cigarette/Vaping Use: Never Used Second Hand Smoke Exposure: No service: No Current occupational status: disabled Cognitive needs: Yes Hearing needs: No Vision needs: No Review of Systems Const Reports daytime sleepiness, Denies excessive sweating, Reports fatigue, Denies fever(s), Denies lethargy, Denies malaise, Denies night sweats, Denies snoring and Denies weight loss Eyes Denies blurry vision and Denies itchy eyes ENT Denies nasal congestion, Denies post nasal drip, Denies sinus pain, Denies sinus pressure and Denies other ( Thrush) Card Denies chest pain, Denies pedal edema, Denies dyspnea, Denies orthopnea and Denies paroxysmal nocturnal dyspnea Resp Denies cough, Denies hemoptysis, Denies excessive phlegm production, Denies dyspnea, Denies snoring and Denies wheezing GI Denies abdominal pain and Denies heartburn Musc Denies myalgias, Denies arthralgias and Denies joint swelling Skin/Breast Denies rash Neuro Denies memory loss and Denies seizure-like activity Psych Denies abnormal sleep pattern, Denies anxiety and Denies memory loss Endo Denies excessive sweating, Reports fatigue and Denies heat intolerance Gian/Lymph Denies easy bruising Aller/Immun Denies itchy eyes, Denies seasonal rhinorrhea and Denies wheezing Physical Exam Vital Signs: Last Vital Signs Pulse 90 02/14/23 10:44 BP 130/80 02/14/23 10:44 Pulse Ox 96 02/14/23 10:44 BMI result Body Mass Index 51.9 Const General: no acute distress and alert Nutritional Appearance: obese Orientation/consciousness: Other orientation findings ( oriented) HEENT Head: Yes atraumatic Eyes General: appearance normal, both eyes and all related structures Sclerae: sclerae normal EOM: EOMs intact bilaterally Neck Neck: Yes supple Lymphatic: no lymphadenopathy noted Resp Effort & Inspection: normal respiratory effort and no use of accessory muscles Auscultation: clear to auscultation bilaterally Cardio Rate: regular rate Rhythm: regular rhythm Heart sounds: no gallops, no murmurs and no rubs Skin General skin exam: other ( warm) Extrem General: No clubbing, No cyanosis and No edema Assessment & Plan Assessment & Plan (1) Asthma-COPD overlap syndrome: Code(s): J44.9 - Chronic obstructive pulmonary disease, unspecified Plan: Well controlled on Stiolto and albuterol MDI. Continue current regimen. (2) KENNEDY (obstructive sleep apnea): Code(s): G47.33 - Obstructive sleep apnea (adult) (pediatric) Plan: Patient was not able to tolerate fullface mask and would like to try nasal mask. (3) Pulmonary nodules: Code(s): R91.8 - Other nonspecific abnormal finding of lung field Plan: Follow-up CT chest ordered. Coding Level of Care Code Est Pt Level 4 (96068) Diagnoses Asthma-COPD overlap syndrome J44.9 KENNEDY (obstructive sleep apnea) G47.33 Pulmonary nodules R91.8
[2023-02-14 10:44] VITALS: BP 130/80; PULSE 90; O2SAT 96; BMI 51.9
== END 2023-02-14 11:06 | disposition home or self-care (01) ==
PROVIDERS: PCP Internal Medicine; Visit Provider Internal Medicine Pulmonary Disease
DX: J44.9 Chronic obstructive pulmonary disease, unspecified (principal); G47.33 Obstructive sleep apnea (adult) (pediatric); R91.8 Other nonspecific abnormal finding of lung field
CPT/HCPCS: 99214

== ENCOUNTER → 2023-02-14 10:36 | Outpatient (BNVA) | payer OTHER, SELFPAY | PROVIDERS: PCP Internal Medicine; Visit Provider Internal Medicine Pulmonary Disease | DX: J44.9 Chronic obstructive pulmonary disease, unspecified (principal); G47.33 Obstructive sleep apnea (adult) (pediatric); R91.8 Other nonspecific abnormal finding of lung field | CPT/HCPCS: 99212 ==

== ENCOUNTER 2023-07-04 10:11 | Outpatient (AMB) | payer OTHER, SELFPAY ==
--- NOTE | 2023-07-04 10:14 | MHC.PC.OV ---
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 Accompanied by: Self / Same As Patient Allergies umeclidinium [Incruse Ellipta] Allergy (Intermediate, Verified 07/04/23 10:28) nausea varenicline [From Chantix] Allergy (Intermediate, Verified 07/04/23 10:28) Palpitations,headache Medication List - Last Reconciled 07/04/23 by Tatiana Pina MD acetaminophen (Tylenol Extra Strength) 500 mg PO Q6H PRN albuterol sulfate 2.5 mg (3 mL) inhalation Q4-6H PRN 30 days albuterol sulfate 90 mcg/actuation 1 puff PO QID PRN aripiprazole 15 mg PO QAM [bed rails As directed] blood sugar diagnostic (FreeStyle Test strips) Use 1 test strip once a day blood-glucose meter (FreeStyle [place] Lite kit) As directed bupropion HCl 300 mg PO QAM calcitriol 0.5 mcg PO DAILY 90 days cane As directed cromolyn 4% 1 drp ophthalmic (eye) QID cyclobenzaprine 5 mg PO Q8H PRN 5 days hydrocortisone 2.5% 1 appl topical BID PRN 30 days hydroxyzine pamoate 25 mg PO DAILY PRN incontinence pad, liner, disp (Bladder Control Pads) Use 1 pad twice a day as needed lancets (FreeStyle Lancets) Use 1 lancet once a day latanoprost 0.005% 1 drp ophthalmic (eye) BEDTIME 30 days lidocaine 5% (Lidoderm) 1 patch topical DAILY PRN MDD remove after 12 hours miscellaneous medical supply As directed miscellaneous medical supply 1 ea miscellaneous .daily neomycin-polymyxin B-dexameth 3.5 mg/g-10,000 unit/g-0.1 % 0.5 inches ophthalmic (eye) TID 14 days [pull-ups adult As directed] [raised toilet seat As directed] Shower Chair As directed [shower seat As directed] tiotropium-olodaterol 2.5-2.5 mcg/actuation (Stiolto Respimat) 2 puffs inhalation DAILY 30 days underpads (Bed Underpads) Use 2 to 4 as needed daily underpads (Bed Underpads) Use 1 underpad twice a day as needed [versaframe As directed] walker As directed [wheelchai As directed] zolpidem 10 mg PO BEDTIME Tobacco use date assessed: 11/17/22 Dental Screening Dental Screen Date: 07/04/23 Did you have a dental visit in the last 12 months?: No Did you have a dental problem in the last 6 months where you did not have access to dental care?: No Was dental information given to patient?: Patient has dentist HPI HPI Comments History of Present Illness Details This is a 53-year-old female with diabetes mellitus type 2, asthma-COPD overlap syndrome, morbid obesity, bipolar disorder and hyperlipidemia that comes today for follow-up on her conditions. A1c elevated and I will start her on metformin twice a day. Last LDL was not on goal and she will start statins at bedtime. Asthma-COPD overlap syndrome has been stable with rescue inhaler as needed. She is morbidly obese with a BMI of 53 and declines weight loss surgery. Her bipolar disorder has been stable with Abilify. Developed multiple abscess in breast and declined a mammogram or seen surgery. She would like Bactrim for 6 months. [facility] Medical History (Updated 07/04/23 @ 10:50 by Tatiana Pina MD) Hypovitaminosis D Cervical lymphadenopathy Chest pain Unintentional weight loss Skin lesion Right knee pain Left knee pain Right upper limb pain Abscess Coarse tremors Physical exam Morbid obesity due to excess calories Right shoulder pain Left breast mass Screening for breast cancer Seborrheic dermatitis Breast mass, right Lumbar degenerative disc disease Urge urinary incontinence Diabetes mellitus Psoriasiform dermatitis Insomnia Depression with anxiety Bipolar 1 disorder Migraines Obese Mild asthma Surgical History History of mammogram History of tubal ligation History of laparoscopic cholecystectomy Tubal ligation status S/P cholecystectomy Family History Father Stomach cancer Mother No problems noted. Maternal Grandmother Diabetes Hypertension CVD (cardiovascular disease) Brother No problems noted. Brother No problems noted. Sister No problems noted. Son No problems noted. Daughter No problems noted. Daughter No problems noted. Daughter No problems noted. Social History Household Members: None Housing: House Are you a primary career guidance counselor to a significant other at home: No Do you presently have visiting nurse or other home services: No Alcohol intake: never Patient Tobacco Use Status: Current everyday Tobacco user Tobacco use type: Cigarette Cigarette Packs Per Day: 1 e-Cigarette/Vaping Use: Never Used Second Hand Smoke Exposure: No service: No Current occupational status: disabled Cognitive needs: Yes Hearing needs: No Vision needs: No Questionnaire Thrive Questionnaire Date Thrive assessed: 12/20/22 DULCE-7 AMB Questionnaire DULCE-7 Date DULCE - 7 assessed: 12/20/22 Source: Developed by Drs. Gustavo Raymond, Felicia Patino, Ramon Kendrick and colleagues, with an educational perla from [employer]. Review of Systems Const All systems reviewed & are unremarkable except as noted in HPI and below Eyes Reports no additional complaints, Denies change in vision and Denies other visual disturbances Card Denies chest pain at rest, Denies chest pain with activity, Denies edema, Denies irregular heart rhythm, Denies claudication, Denies dyspnea, Denies dyspnea on exertion, Denies orthopnea, Denies paroxysmal nocturnal dyspnea and Denies slow heart rate Resp Denies cough, Denies dyspnea and Denies dyspnea on exertion GI Denies abdominal pain, Denies change in bowel habits, Denies excessive flatus, Denies nausea and Denies vomiting Denies urinary incontinence, Denies urinary hesitancy and Denies urinary urgency Musc Denies abnormal gait, Denies atrophy, Denies deformity and Denies limited range of motion Skin/Breast Denies bleeding lesions, Denies changing lesions and Denies rash Neuro Denies abnormal gait and Denies lack of coordination Physical exam (Primary Care) Vital Signs: Last Vital Signs Pulse 74 07/04/23 10:20 BP 118/82 07/04/23 10:20 Pulse Ox 97 07/04/23 10:20 Oxygen Delivery Method Room Air 07/04/23 10:20 BMI result Body Mass Index 53.0 Tobacco/Smoking Status: Tobacco use Status Tobacco use date assessed 11/17/22 07/04/23 10:24 Patient Tobacco Use Status Current everyday Tobacco 07/04/23 10:24 Tobacco use type Cigarette 07/04/23 10:24 e-Cigarette/Vaping Use Never Used 07/04/23 10:24 Thrive Assessment: Date of Thrive Assessment Date Thrive assessed 12/20/22 07/04/23 10:24 Eyes General: appearance normal, both eyes and all related structures Eyelids: Yes eyelids normal Conjunctivae: conjunctivae normal Neck Neck: Yes normal visual inspection and Yes supple Resp Effort & Inspection: normal respiratory effort Auscultation: clear to auscultation bilaterally Cardio Jugular venous distension: no JVD Rate: regular rate Rhythm: regular rhythm Heart sounds: S1 normal heart sound present and S2 normal heart sound present Extrem General: Yes full ROM Psych Appearance: disheveled Office Procedures Flu Questionnaire Does the patient have a severe egg allergy?: No Has the patient ever had any past reaction to a flu shot?: Yes Results AMB Hemoglobin A1c AMB Hemoglobin A1c 7.6 % Last Edit by MERON Joseph on 07/04/23 10:29 Immunizations flu vacc [id number] 6mos up(PF) 60 mcg(15 mcgx4)/0.5 mL IM syringe Performing Provider: Tatiana Pina MD [facility] Documented (not given) by: MERON Joseph on 07/04/23 10:27 Reason Not Given: Patient Refused Results Reviewed Results Reviewed: Laboratory Last Values Hgb A1c (Clinic) 7.6 % (4.0-6.0) H 07/04/23 10:28 Assessment and Plan Assessment & Plan (1) Asthma-COPD overlap syndrome: Code(s): J44.9 - Chronic obstructive pulmonary disease, unspecified Plan: Use rescue inhaler as needed. (2) Diabetes mellitus: Code(s): E11.9 - Type 2 diabetes mellitus without complications Qualifiers: Diabetes mellitus type: type 2 Diabetes mellitus group home insulin use: with rn long term care use Diabetes mellitus complication status: with hyperglycemia Qualified Code(s): E11.65 - Type 2 diabetes mellitus with hyperglycemia; Z79.4 - terminal makeup operator (current) use of insulin Plan: Start metformin. A1c goal is equal or less than 7%. (3) Bipolar 1 disorder: Code(s): F31.9 - Bipolar disorder, unspecified Plan: Continue Abilify. (4) Morbid obesity due to excess calories: Code(s): E66.01 - Morbid (severe) obesity due to excess calories Plan: Start diet and exercise as tolerated. BMI goal is less than 30. Declines weight loss surgery. (5) Hyperlipidemia LDL goal <70: Code(s): E78.5 - Hyperlipidemia, unspecified Plan: Start statins. LDL goal is less than 70. Orders: Orders AMB Hemoglobin A1c Today E11.9 - Type 2 diabetes mellitus without complications Lipid Panel Today E78.5 - Hyperlipidemia, unspecified Microalbumin, Random (w Creat) Today E11.9 - Type 2 diabetes mellitus without complications Vitamin D 25-OH Total Today E55.9 - Vitamin D deficiency, unspecified Influenza [id number] Immunization Today Z23 - Encounter for immunization Comprehensive [place]. Panel Fast Today E78.5 - Hyperlipidemia, unspecified Medications: New rosuvastatin 10 mg PO BEDTIME 90 days 90 tabs 1RF E78.5 - Hyperlipidemia, unspecified sulfamethoxazole-trimethoprim 800-160 mg (Bactrim DS) 1 tab PO BID 90 days 180 tabs 1RF metformin 500 mg PO BID 90 days 180 tabs 1RF cholecalciferol (vitamin D3) 25 mcg PO DAILY 90 days 90 caps 3RF Changed From albuterol sulfate 2.5 mg (3 mL) inhalation Q4-6H 30 days PRN 75 mL 3RF shortness of breath or wheezing To albuterol sulfate 2.5 mg (3 mL) inhalation Q4-6H 90 days PRN 180 mL 3RF shortness of breath or wheezing From aripiprazole 15 mg PO QAM depressive disorder To aripiprazole 15 mg PO QAM 90 days 90 tabs 1RF depressive disorder From bupropion HCl 300 mg PO QAM depressive disorder To bupropion HCl 300 mg PO QAM 90 days 90 tabs 1RF depressive disorder Refilled tiotropium-olodaterol 2.5-2.5 mcg/actuation (Stiolto Respimat) 2 puffs inhalation DAILY 30 days 1 ea 6RF blood sugar diagnostic (FreeStyle Test strips) Use 1 test strip once a day 100 ea 3RF E11.9 - Type 2 diabetes mellitus without complications cromolyn 4% 1 drp ophthalmic (eye) QID 10 mL 2RF cyclobenzaprine 5 mg PO Q8H 5 days PRN 14 tabs 0RF pain (scale score 7-10) lidocaine 5% (Lidoderm) leave on most painful area for up to 12 hrs 1 patch topical DAILY PRN 30 ea 0RF pain MDD remove after 12 hours albuterol sulfate 90 mcg/actuation 1 puff PO QID PRN 8.5 ea 6RF for wheezing Z00.00 - Encounter for general adult medical examination without abnormal findings Discontinued calcitriol Discontinued Reason: Patient Completed Course 0.5 mcg PO DAILY 90 days 90 caps 1RF E55.9 - Vitamin D deficiency, unspecified Coding Level of Care Code Est Pt Level 4 (53365) Diagnoses Asthma-COPD overlap syndrome J44.9 Type 2 diabetes mellitus with hyperglycemia, with long-term current use of insulin E11.65; Z79.4 Diabetes mellitus type: type 2 Diabetes mellitus rn long term care insulin use: with group home use Diabetes mellitus complication status: with hyperglycemia Bipolar 1 disorder F31.9 Morbid obesity due to excess calories E66.01 Hyperlipidemia LDL goal <70 E78.5 Time Spent (min) 22
[2023-07-04 10:20] VITALS: BP 118/82; PULSE 74; O2SAT 97; BMI 53.0
== END 2023-07-04 10:38 | disposition home or self-care (01) ==
PROVIDERS: Visit Provider Internal Medicine
DX: J44.9 Chronic obstructive pulmonary disease, unspecified (principal); E11.65 Type 2 diabetes mellitus with hyperglycemia; Z79.4 Long term (current) use of insulin; F31.9 Bipolar disorder, unspecified; E66.01 Morbid (severe) obesity due to excess calories; E78.5 Hyperlipidemia, unspecified
CPT/HCPCS: 83036; 99214

== ENCOUNTER 2024-05-04 21:58 | Emergency (ER) | payer OTHER, SELFPAY ==
--- NOTE | 2024-05-04 | ECG_ITS ---
Test Reason : CHEST PAIN Blood Pressure : / mmHG Vent. Rate : 087 BPM Atrial Rate : 087 BPM P-R Int : 156 ms QRS Dur : 070 ms QT Int : 370 ms P-R-T Axes : 071 046 066 degrees QTc Int : 445 ms Normal sinus rhythm Low voltage QRS Borderline ECG When compared with ECG of 05-JUL-2022 01:02, Heart rate has decreased Referred By: Generic ED Physician Electronically Signed By:JACKIE TAFOYA
[2024-05-04 22:11] VITALS: BP 129/86; PULSE 91; RESP 20; TEMP 37; O2SAT 96; BMI 50.8
[2024-05-04 22:13] LABS: MANUAL DIFF FLAG NO
[2024-05-04 22:14] LABS: Basophils Absolute Auto 0.1 X10*3/uL (0.0-0.2); Basophils Percent Auto 0.5 % (0-2); Eosinophils Absolute Auto 0.3 X10*3/uL (0.0-0.4); Eosinophils Percent Auto 2.7 % (0-4); Hematocrit 43.2 % (37.0-47.0); Hemoglobin 14.7 g/dl (12.0-16.0); Imm Gran Abs Auto 0.02 X10*3/uL (0.00-0.03); Imm Gran Pct Auto 0.2 % (0.0-0.4); Lymphocytes Absolute Auto 2.9 X10*3/uL (1.2-4.9); Lymphocytes Percent Auto 31.4 % (20-40); Mean Corpuscular Hemoglobin 28.9 pg (27.0-33.0); Mean Corpuscular Volume 84.9 fL (80.0-98.0); Mean Platelet Volume 10.3 fL (9.4-12.3); Monocytes Absolute Auto 0.4 X10*3/uL (0.1-1.2); Monocytes Percent Auto 4.4 % (2-11); Neutrophils Absolute Auto 5.7 x10*3/uL (2.0-8.3); Neutrophils Percent Auto 60.8 % (45-73); Platelet Count 267 X10*3/uL (160-400); Red Blood Count 5.09 X10*6/uL (4.20-5.50); Red Cell Distribution Width 14.2 % (11.0-16.0); White Blood Count 9.3 X10*3/uL (4.8-10.8)
[2024-05-04 22:39] LABS: Alanine Aminotransferase 17 U/L (0-31); Albumin Level 4.1 g/dL (3.5-5.0); Alkaline Phosphatase 60 U/L (39-117); Anion Gap 13 (12-20); Aspartate Amino Transferase 17 U/L (5-31); Bilirubin Total 0.4 mg/dL (0.0-1.0); Blood Urea Nitrogen 9 mg/dL (9-16); Calcium 10.3 mg/dL (8.4-10.2); Carbon Dioxide 29 mmol/L (22-29); Chloride 101 mmol/L (96-108); Creatinine Clr Calc Pharmacy 87.7; Estimated Glomerular Filt Rate > 60; Glucose Random 193 mg/dL (60-115); Potassium 4.2 mmol/L (3.3-5.1); Sodium 139 mmol/L (135-145); Total Protein 8.3 g/dL (6.5-8.0); Troponin-I High Sensitivity < 2.7 ng/L (<3.5-17.0)
[2024-05-04 22:42] LABS: HCG Quantitative < 2 mIU/mL
--- NOTE | 2024-05-04 23:14 | ED.GENADULT ---
HPI - General Adult General Chief complaint: General Medical Stated complaint: Chest pain into arm and hand Time Seen by Provider: 05/04/24 23:13 Source: patient, old records reviewed and deputy county counsel Mode of arrival: ambulatory Limitations: no limitations History of Present Illness ED Provider: NEWTON REYES narrative: 53 yo female with PMH of HLD, polyarthralgia, obesity, DM, migraines, asthma, here with c/o 2+ months of R hand pain radiating up the arm made worse with all movements. Pain shoots up the arm. She is R hand dominant. She has not seen orthopedics or a hand surgeon. No rash or trauma noted. She does not wear a splint. She has not been told she has carpal tunnel. MD complaint: R hand pain Onset (ago): month(s) (2+) Location: right and upper extremity Radiation: extremity Severity: severe Quality: aching Pain Consistency: constant Relieving factors: immobilization Exacerbating factors: movement Associated symptoms: denies other symptoms Treatments prior to arrival: none Related Data Home Medications ?Medication ?Instructions ?Recorded ?Confirmed hydroxyzine pamoate 25 mg capsule 25 mg PO DAILY PRN Allergy Symptoms 04/27/21 07/04/23 zolpidem 10 mg tablet 10 mg PO BEDTIME 04/27/21 07/04/23 Previous Rx's ?Medication ?Instructions ?Recorded miscellaneous medical supply #1 ea 10/13/20 incontinence pad, liner, disp #60 ea 12/31/20 (Bladder Control Pads) blood-glucose meter (FreeStyle #1 ea 04/27/21 [place] Lite kit) lancets 28 gauge (FreeStyle #100 ea 04/27/21 Lancets) walker #1 ea 10/19/21 cane #1 ea 12/20/22 underpads (Bed Underpads) #60 ea 12/20/22 versaframe #2 ea 12/20/22 wheelchai #1 ea 12/20/22 miscellaneous medical supply 1 ea miscellaneous .daily #1 ea 12/25/22 bed rails #2 ea 12/28/22 pull-ups adult #120 ea 12/28/22 shower seat #1 ea 12/28/22 underpads (Bed Underpads) #100 ea 12/28/22 Shower Chair #1 ea 01/12/23 raised toilet seat #1 ea 01/12/23 aripiprazole 15 mg tablet 15 mg PO QAM depressive disorder 07/04/23 90 days #90 tabs blood sugar diagnostic (FreeStyle #100 ea 07/04/23 Test strips) bupropion HCl 300 mg 24 hr tablet, 300 mg PO QAM depressive disorder 07/04/23 extended release 90 days #90 tabs cholecalciferol (vitamin D3) 25 25 mcg PO DAILY 90 days #90 caps 07/04/23 mcg (1,000 unit) capsule cyclobenzaprine 5 mg tablet 5 mg PO Q8H PRN pain (scale score 07/04/23 7-10) 5 days #14 tabs blood sugar diagnostic (OneTouch #100 ea 07/07/23 Ultra Test strips) blood-glucose meter (OneTouch #1 ea 07/07/23 Ultra2 Meter) lancets 30 gauge (OneTouch #100 ea 07/07/23 UltraSoft 2 Lancet) olopatadine 0.2 % eye drops 1 drp ophthalmic (eye) DAILY PRN 07/16/23 (Pataday Once Daily Relief) itching 30 days #2.5 mL acetaminophen 500 mg tablet 500 mg PO Q6H PRN pain or fever 30 09/25/23 (Tylenol Extra Strength) days #90 tabs albuterol sulfate 2.5 mg/3 mL 2.5 mg (3 mL) inhalation Q4-6H PRN 09/25/23 (0.083 %) solution for nebulization shortness of breath or wheezing 90 days #180 mL albuterol sulfate 90 mcg/actuation 1 puff PO QID PRN for wheezing 09/25/23 aerosol inhaler #8.5 ea cromolyn 4 % eye drops 1 drp ophthalmic (eye) QID #10 mL 09/25/23 latanoprost 0.005 % eye drops 1 drp ophthalmic (eye) BEDTIME 30 09/25/23 days #7.5 mL neomycin 3.5 mg/g-polymyxin B 0.5 inch ophthalmic (eye) TID 14 09/25/23 10,000 unit/g-dexameth 0.1 % eye days #3.5 grams oint sulfamethoxazole 800 1 tab PO BID 90 days #180 tabs 09/25/23 mg-trimethoprim 160 mg tablet (Bactrim DS) tiotropium 2.5 mcg-olodaterol 2.5 2 puff inhalation DAILY 30 days #1 09/25/23 mcg/actuation mist for inhalation ea (Stiolto Respimat) metformin 500 mg tablet 500 mg PO BID 90 days #180 tabs 10/30/23 rosuvastatin 10 mg tablet 10 mg PO BEDTIME 90 days #90 tabs 12/12/23 triamcinolone acetonide 0.1 % 1 appl topical DAILY 30 days #30 04/12/24 topical cream grams triamcinolone acetonide 0.5 % 1 appl topical DAILY 2 weeks #15 04/14/24 topical cream grams cyclobenzaprine 10 mg tablet 10 mg PO TID PRN muscle spasm #20 05/04/24 tabs Allergies Allergy/AdvReac Type Severity Reaction Status Date / Time umeclidinium Allergy Intermediate nausea Verified 05/04/24 22:13 [Incruse Ellipta] varenicline [From Chantix] Allergy Intermediate Palpitation Verified 05/04/24 22:13 s,headache Review of Systems Review of Systems: Constitutional : No Fever, No Chills ENT/Mouth : No Ear Pain, No Hoarseness, No sore throat Eyes: No Eye Pain, No Swelling, No Redness, No Foreign Body Cardiovascular : No Chest Pain, No SOB Respiratory : No Cough, No Dyspnea Gastrointestinal : No Nausea, No Vomiting, No Diarrhea, No abdominal Pain Genitourinary : No Dysuria, No Hematuria Musculoskeletal : positive joint pain, No Myalgias, pos Joint Swelling Skin : No Skin lacerations, No rash Neuro : No Weakness, No Numbness, No Loss of Consciousness, No Dizziness, No Headache All other systems reviewed and are negative [facility] Past Medical History Attestation statement: The following information was validated with the patient. Source: old records reviewed Medical History Hypovitaminosis D Cervical lymphadenopathy Chest pain Unintentional weight loss Skin lesion Right knee pain Left knee pain Right upper limb pain Abscess Coarse tremors Physical exam Morbid obesity due to excess calories Right shoulder pain Left breast mass Screening for breast cancer Seborrheic dermatitis Breast mass, right Lumbar degenerative disc disease Urge urinary incontinence Diabetes mellitus Psoriasiform dermatitis Insomnia Depression with anxiety Bipolar 1 disorder Migraines Obese Mild asthma Surgical History History of mammogram History of tubal ligation History of laparoscopic cholecystectomy Tubal ligation status S/P cholecystectomy Family History Family History Father Stomach cancer Mother No problems noted. Maternal Grandmother Diabetes Hypertension CVD (cardiovascular disease) Brother No problems noted. Brother No problems noted. Sister No problems noted. Son No problems noted. Daughter No problems noted. Daughter No problems noted. Daughter No problems noted. Social History Social History Household Members: None Housing: House Are you a primary caregivers non medical to a significant other at home: No Do you presently have visiting nurse or other home services: No Alcohol intake: never Patient Tobacco Use Status: Current everyday Tobacco user Tobacco use type: Cigarette Cigarette Packs Per Day: 1 Smoked in Last 30 Days: No e-Cigarette/Vaping Use: Never Used Second Hand Smoke Exposure: No Patient : No service: No Current occupational status: disabled Cognitive needs: Yes Hearing needs: No Vision needs: No Physical Exam ED Vital Signs: Vital Signs - 24 hr 05/04/24 22:11 Temperature 98.6 F Pulse Rate 91 Respiratory Rate 20 Blood Pressure 129/86 Pulse Oximetry 96 Oxygen Delivery Method Room Air BMI result Body Mass Index 50.8 Appearance: Alert. Oriented X3. No acute distress. Eyes: Pupils equal, round and reactive to light. ENT: Pharynx normal. Neck: Normal inspection. Neck supple. CVS: Normal heart rate and rhythm. Pulses normal. Respiratory: No respiratory distress. Breath sounds normal. Abdomen: Soft and nontender. Skin: Skin warm and dry. Normal skin color. Normal skin turgor. Extremities: No lower extremity edema. R hand + phalens and tinel sign she is NV intact no swelling or signs of infection pain with palpation to the carpal tunnel Neuro: Oriented X 3. No motor deficit. No sensory deficit. Procedures Orthopedic Splinting/Casting Injury #1: Side: right Upper Extremity Immobilizer: wrist splint Additional Comments: NV intact Medical Decision Making Medical Decision Making MDM Narrative: 53 yo female with PMH of HLD, polyarthralgia, obesity, DM, migraines, asthma, here with c/o R hand pain and pain now radiating up the R arm at this time pain over the carpal tunnel and all carpal tunnel tests are positive she is NV intact will give IM toradol shot she is not on thinners recent plts and Cr normal. Will place in splint and give IM toradol - refer to our orthopedics department Differential Diagnosis Differential Diagnoses: The differential diagnosis associated with the presentation includes cervical radiculopathy, carpal tunnel Admission/Observation Consideration of admission/observation: Escalation of care including admission/observation considered chronic condition needs to follow up with orthopedics Lab Data [facility] Lab Attestation statement: I reviewed the patient's lab results. 05/04/24 22:10 05/04/24 22:10 Labs: Lab Results 05/04/24 Range/Units 22:10 WBC 9.3 (4.8-10.8) X10*3/uL RBC 5.09 (4.20-5.50) X10*6/uL Hgb 14.7 (12.0-16.0) g/dl Hct 43.2 (37.0-47.0) % MCV 84.9 (80.0-98.0) fL MCH 28.9 (27.0-33.0) pg MCHC 34.0 (31.0-35.0) g/dl RDW 14.2 (11.0-16.0) % Plt Count 267 (160-400) X10*3/uL MPV 10.3 (9.4-12.3) fL Immature Gran % (Auto) 0.2 (0.0-0.4) % Neut % (Auto) 60.8 (45-73) % Lymph % (Auto) 31.4 (20-40) % [place] % (Auto) 4.4 (2-11) % Eos % (Auto) 2.7 (0-4) % Baso % (Auto) 0.5 (0-2) % Lymph # (Auto) 2.9 (1.2-4.9) X10*3/uL [place] # (Auto) 0.4 (0.1-1.2) X10*3/uL Eos # (Auto) 0.3 (0.0-0.4) X10*3/uL Baso # (Auto) 0.1 (0.0-0.2) X10*3/uL Abs Immat Gran (auto) 0.02 (0.00-0.03) X10*3/uL Absolute Neuts (auto) 5.7 (2.0-8.3) x10*3/uL Absolute Nucleated RBC 0.000 (0.0-0.012) X10*3/uL Nucleated RBC % (auto) 0.0 (0.0-0.2) /100WBC Sodium 139 (135-145) mmol/L Potassium 4.2 (3.3-5.1) mmol/L Chloride 101 (96-108) mmol/L Carbon Dioxide 29 (22-29) mmol/L Anion Gap 13 (12-20) BUN 9 (9-16) mg/dL Creatinine 0.92 (0.5-1.4) mg/dL Estim Creat Clear Calc 87.7 Estimated GFR > 60 Random Glucose 193 H (60-115) mg/dL Calcium 10.3 H (8.4-10.2) mg/dL Total Bilirubin 0.4 (0.0-1.0) mg/dL AST 17 (5-31) U/L ALT 17 (0-31) U/L Alkaline Phosphatase 60 (39-117) U/L Troponin I High Sens < 2.7 (<3.5-17.0) ng/L Total Protein 8.3 H (6.5-8.0) g/dL Albumin 4.1 (3.5-5.0) g/dL Beta HCG, Quant < 2 mIU/mL Independent Interpretation I performed an independent interpretation of an: EKG Interpretation: Rate: 87 Rhythm: NSR [place]: normal Normal P waves. Normal NAS. Normal QRS complex. decreased voltage QRS ST T wave : flat t wave aVL, no OVI qTC: 447 prior studies: no change from priors The study has been interpreted contemporaneously by me. . External Record Review External record reviewed: Office record Discharge Plan Discharge Clinical Impression: Carpal tunnel syndrome Qualifiers: Laterality: right Qualified Code(s): G56.01 - Carpal tunnel syndrome, right upper limb Patient Disposition: Home, Self-Care Instructions: Paresthesia (ED) Additional Instructions: labs and EKG reassuring wear brace during day and while sleeping return for any worsening symptoms or concerns you need to see our orthopedics department for better management of this Prescriptions: New cyclobenzaprine 10 mg tablet 10 mg PO TID PRN (Reason: muscle spasm) Qty: 20 0RF No Action (DME) Bladder Control Pads Pad See Rx Instructions .ROUTE .MEDSUPPLY Qty: 60 11RF Rx Instructions: Use 1 pad twice a day as needed miscellaneous medical supply Kit 1 ea miscellaneous .daily Qty: 1 0RF Rx Instructions: gasoline power shovel operator pads and bed side table (DME) bed rails See Rx Instructions .Route .MEDSUPPLY Qty: 2 0RF Rx Instructions: As directed (DME) shower seat See Rx Instructions .Route .MEDSUPPLY Qty: 1 0RF Rx Instructions: As directed (DME) pull-ups adult XXX-large See Rx Instructions .Route .MEDSUPPLY Qty: 120 11RF Rx Instructions: As directed (DME) underpads [Bed Underpads] Pad See Rx Instructions .Route Qty: 100 6RF Rx Instructions: Use 2 to 4 as needed daily (DME) raised toilet seat See Rx Instructions .Route .MEDSUPPLY Qty: 1 0RF Rx Instructions: As directed (DME) Shower Chair Misc See Rx Instructions .Route Qty: 1 0RF Rx Instructions: As directed (DME) OneTouch Ultra Test Strip See Rx Instructions .Route Qty: 100 3RF Rx Instructions: Use 1 test strip once a day (DME) lancets [OneTouch UltraSoft 2 Lancet] 30 gauge misc See Rx Instructions .Route Qty: 100 3RF Rx Instructions: Use 1 lancet once a day (DME) blood-glucose meter [OneTouch Ultra2 Meter] Misc See Rx Instructions .Route Qty: 1 0RF Rx Instructions: As directed olopatadine [Pataday Once Daily Relief] 0.2 % drops 1 drp ophthalmic (eye) DAILY PRN (Reason: itching) 30 Days Qty: 2.5 1RF acetaminophen [Tylenol Extra Strength] 500 mg tablet 500 mg PO Q6H PRN (Reason: pain or fever) 30 Days Qty: 90 6RF albuterol sulfate 2.5 mg /3 mL (0.083 %) solution for nebulization 2.5 mg inhalation Q4-6H PRN (Reason: shortness of breath or wheezing) 90 Days Qty: 180 3RF albuterol sulfate 90 mcg/actuation HFA aerosol inhaler 1 puff PO QID PRN (Reason: for wheezing) Qty: 8.5 6RF cromolyn 4 % drops 1 drp ophthalmic (eye) QID Qty: 10 2RF latanoprost 0.005 % drops 1 drp ophthalmic (eye) BEDTIME 30 Days Qty: 7.5 3RF neomycin-polymyxin B-dexameth 3.5 mg/g-10,000 unit/g-0.1 % ointment 0.5 inch ophthalmic (eye) TID 14 Days Qty: 3.5 6RF sulfamethoxazole-trimethoprim [Bactrim DS] 800-160 mg tablet 1 tab PO BID 90 Days Qty: 180 1RF Stiolto Respimat 2.5-2.5 mcg/actuation mist 2 puff inhalation DAILY 30 Days Qty: 1 6RF metformin 500 mg tablet 500 mg PO BID 90 Days Qty: 180 1RF rosuvastatin 10 mg tablet 10 mg PO BEDTIME 90 Days Qty: 90 1RF triamcinolone acetonide 0.1 % cream 1 appl topical DAILY 30 Days Qty: 30 1RF triamcinolone acetonide 0.5 % cream 1 appl topical DAILY 14 Days Qty: 15 3RF (DME) walker Misc See Rx Instructions .ROUTE .MEDSUPPLY Qty: 1 0RF Rx Instructions: As directed (DME) miscellaneous medical supply [facility] See Rx Instructions .ROUTE .MEDSUPPLY Qty: 1 0RF Rx Instructions: As directed hydroxyzine pamoate 25 mg capsule 25 mg PO DAILY PRN (Reason: Allergy Symptoms) zolpidem 10 mg tablet 10 mg PO BEDTIME (DME) blood-glucose meter [FreeStyle [place] Lite] Kit See Rx Instructions .ROUTE .MEDSUPPLY Qty: 1 0RF Rx Instructions: As directed (DME) lancets [FreeStyle Lancets] 28 gauge misc See Rx Instructions .ROUTE .MEDSUPPLY Qty: 100 3RF Rx Instructions: Use 1 lancet once a day (DME) underpads [Bed Underpads] Pad See Rx Instructions .ROUTE .MEDSUPPLY Qty: 60 11RF Rx Instructions: Use 1 underpad twice a day as needed (DME) versaframe See Rx Instructions .Route .MEDSUPPLY Qty: 2 0RF Rx Instructions: As directed (DME) cane Device See Rx Instructions .Route Qty: 1 0RF Rx Instructions: As directed (DME) wheelchai See Rx Instructions .Route .MEDSUPPLY Qty: 1 0RF Rx Instructions: As directed aripiprazole 15 mg tablet 15 mg PO QAM 90 Days Qty: 90 1RF (DME) FreeStyle Test Strip See Rx Instructions .ROUTE .MEDSUPPLY Qty: 100 3RF Rx Instructions: Use 1 test strip once a day bupropion HCl 300 mg tablet extended release 24 hr 300 mg PO QAM 90 Days Qty: 90 1RF cyclobenzaprine 5 mg tablet 5 mg PO Q8H PRN (Reason: pain (scale score 7-10)) 5 Days Qty: 14 0RF cholecalciferol (vitamin D3) 25 mcg (1,000 unit) capsule 25 mcg PO DAILY 90 Days Qty: 90 3RF Referrals: [facility] [place] Orthopedic Surgeons [Provider Group] Print Language: Kiswahili
[2024-05-04] MEDS: Ketorolac Tromethamine 30 MG/ML VIAL IM (23:30)
[2024-05-04 23:45] VITALS: BP 129/86; PULSE 91; RESP 20; TEMP 37; O2SAT 96
== END 2024-05-04 23:47 | disposition home or self-care (01) ==
PROVIDERS: Emergency Provider Emergency Medicine; PCP Internal Medicine
DX: G56.01 Carpal tunnel syndrome, right upper limb (principal); R07.89 Other chest pain; R10.2 Pelvic and perineal pain; E11.9 Type 2 diabetes mellitus without complications; Z79.84 Long term (current) use of oral hypoglycemic drugs; Z79.899 Other long term (current) drug therapy
CPT/HCPCS: 29125; 36415; 80053; 84484; 84702; 85025; 93005; 96372; 99284; 99285; J1885

== ENCOUNTER 2024-05-28 12:57 | Outpatient (AMB) | payer OTHER, SELFPAY ==
--- NOTE | 2024-05-28 12:58 | A.OFFPC_ITS ---
Vital Signs 05/28/24 13:04 Height 5 ft 2 in Weight 281 lb BMI 51.4 BP 118/80 Blood Pressure Location Lt brachial Position Sitting Intake Visit Reasons: follow up dm Intake Note: Patient here follow up DM Utility Bill Collection Clerk Required: No Accompanied by: Self / Same As Patient Allergies umeclidinium [Incruse Ellipta] Allergy (Intermediate, Verified 05/28/24 13:22) nausea varenicline [From Chantix] Allergy (Intermediate, Verified 05/28/24 13:22) Palpitations,headache Medication List - Last Reconciled 05/28/24 by Tatiana Pina MD acetaminophen (Tylenol Extra Strength) 500 mg PO Q6H PRN 30 days albuterol sulfate 90 mcg/actuation 1 puff PO QID PRN albuterol sulfate 2.5 mg (3 mL) inhalation Q4-6H PRN 90 days [bed rails As directed] blood sugar diagnostic (FreeStyle Test strips) Use 1 test strip once a day blood sugar diagnostic (OneTouch Ultra Test strips) Use 1 test strip once a day blood-glucose meter (FreeStyle Milmay Lite kit) As directed blood-glucose meter (OneTouch Ultra2 Meter) As directed cane As directed cholecalciferol (vitamin D3) 25 mcg PO DAILY 90 days cromolyn 4% 1 drp ophthalmic (eye) QID cyclobenzaprine 10 mg PO TID PRN incontinence pad, liner, disp (Bladder Control Pads) Use 1 pad twice a day as needed ipratropium-albuterol 0.5 mg-3 mg(2.5 mg base)/3 mL 3 mL inhalation Q6-8H PRN lancets (FreeStyle Lancets) Use 1 lancet once a day lancets (OneTouch UltraSoft 2 Lancet) Use 1 lancet once a day latanoprost 0.005% 1 drp ophthalmic (eye) BEDTIME 30 days lemborexant (Dayvigo) 10 mg PO BEDTIME lorazepam 2 mg PO BID PRN lurasidone mg PO metformin 500 mg PO BID 90 days miscellaneous medical supply As directed miscellaneous medical supply 1 ea miscellaneous .daily neomycin-polymyxin B-dexameth 3.5 mg/g-10,000 unit/g-0.1 % 0.5 inches ophthalmic (eye) TID 14 days olopatadine 0.2% (Pataday Once Daily Relief) 1 drp ophthalmic (eye) DAILY PRN 30 days paroxetine HCl 10 mg PO DAILY [pull-ups adult As directed] [raised toilet seat As directed] rosuvastatin 10 mg PO BEDTIME 90 days Shower Chair As directed [shower seat As directed] tiotropium-olodaterol 2.5-2.5 mcg/actuation (Stiolto Respimat) 2 puffs inhalation DAILY 30 days triamcinolone acetonide 0.5% 1 appl topical DAILY 2 weeks triamcinolone acetonide 0.1% 1 appl topical DAILY 30 days underpads (Bed Underpads) Use 2 to 4 as needed daily underpads (Bed Underpads) Use 1 underpad twice a day as needed [versaframe As directed] walker As directed [wheelchai As directed] zolpidem 10 mg PO BEDTIME Tobacco use date assessed: 11/17/22 Dental Screening Dental Screen Date: 07/04/23 HPI HPI Comments History of Present Illness Details This is a 53-year-old female with bipolar disorder, diabetes mellitus type 2, asthma-COPD overlap syndrome and morbid obesity that comes today complaining about right hip pain and right knee pain that bothers her. She has fell about 7 months ago in [employer] and hit her knee. She also has lumbar degenerative disc disease and will benefit from having a recliner. Bipolar disorder is follow by Psychiatry which recently change her meds. A1c has been more elevated and she admits not being taking metformin because she did not receive it at the pharmacy. I will resend this as well as Ozempic. She use rescue inhaler less than once a month. She is morbidly obese with a BMI of 51.4 and declines weight loss surgery. Was advised diet and exercise to reach BMI goal less than 30. [facility] Medical History (Updated 05/28/24 @ 16:27 by Tatiana Pina MD) Hypovitaminosis D Cervical lymphadenopathy Chest pain Unintentional weight loss Skin lesion Right knee pain Left knee pain Right upper limb pain Abscess Coarse tremors Physical exam Morbid obesity due to excess calories Right shoulder pain Left breast mass Screening for breast cancer Seborrheic dermatitis Breast mass, right Lumbar degenerative disc disease Urge urinary incontinence Diabetes mellitus Psoriasiform dermatitis Insomnia Depression with anxiety Bipolar 1 disorder Migraines Obese Mild asthma Surgical History History of mammogram History of tubal ligation History of laparoscopic cholecystectomy Tubal ligation status S/P cholecystectomy Family History Father Stomach cancer Mother No problems noted. Maternal Grandmother Diabetes Hypertension CVD (cardiovascular disease) Brother No problems noted. Brother No problems noted. Sister No problems noted. Son No problems noted. Daughter No problems noted. Daughter No problems noted. Daughter No problems noted. Social History Household Members: None Housing: House Are you a primary primary care physician to a significant other at home: No Do you presently have visiting nurse or other home services: No Alcohol intake: never Patient Tobacco Use Status: Current everyday Tobacco user Tobacco use type: Cigarette Cigarette Packs Per Day: 1 e-Cigarette/Vaping Use: Never Used Second Hand Smoke Exposure: No service: No Current occupational status: disabled Cognitive needs: Yes Hearing needs: No Vision needs: No Questionnaire PHQ-9 Over the last 2 weeks, how often have you been bothered by any of the following problems? 1. Little interest or pleasure in doing things: several days 2. Feeling down, depressed, or hopeless: several days 3. Trouble falling or staying asleep, or sleeping too much: several days 4. Feeling tired or having little energy: not at all 5. Poor appetite or overeating: not at all 6. Feeling bad about yourself - or that you are a failure or have let yourself or your family down: several days 7. Trouble concentrating on things, such as reading the newspaper or watching television: not at all 8. Moving or speaking so slowly that other people could have noticed. Or the opposite - being so fidgety or restless that you have been moving around a lot more than usual: not at all 9. Thoughts that you would be better off or of hurting yourself in some way: not at all Total score: 4 Depression Screening Interpretation: Positive Depression Screening Follow-up: Existing condition, In treatment, Community Mental Health Worker F/U and Follow- up Visit Requested Depression Screening Done: Yes 45615 - PHQ-9 Billing: Yes Source: Developed by Drs. Gustavo Raymond, Felicia Patino, Ramon Kendrick and colleagues, with an educational perla from [employer]. Thrive Questionnaire Date Thrive assessed: 05/28/24 I am a: Patient What is your living situation today?: I have a steady place to live Within the past 12 months, did the food you bought not last and you didn't have the money to get more?: Never true Within the past 12 months, did you worry whether your food would run out before you got money to buy more?: Never true Do you have trouble paying for medicines?: No Do you have trouble getting transportation to medical appointments?: No Do you have trouble paying your heating and electricity bill?: No Do you have trouble taking care of your child, family member or friend?: No Do you have trouble with day-to-day activities such as bathing, preparing meals, shopping, managing finances, etc.?: Yes Are you currently unemployed and looking for a job?: No Are you interested in more education?: No Please select the resources that you would like help with: None Currently or been in a relationship where the following occur: No concerns reported THRIVE Score: 0 AUDIT C Alcohol Use Questionnaire (AUDIT-C) 1. How often do you have a drink containing alcohol?: Never Total Score: 0 DULCE-7 AMB Questionnaire DULCE-7 Date DULCE - 7 assessed: 05/28/24 Feeling nervous, anxious, or on edge: 1 = Several days Not being able to stop or control worryin = Not at all Worrying too much about different things: 1 = Several days Trouble relaxin = Not at all Being so restless that it is hard to sit still: 0 = Not at all Becoming easily annoyed or irritable: 0 = Not at all Feeling afraid as if something awful might happen: 0 = Not at all Total DULCE-7 score (0-4 normal; 5-9 mild; 10-14 moderate; 15-21 severe): 2 Source: Developed by Drs. Gustavo Raymond, Ramon Harding and colleagues, with an educational perla from [employer]. DULCE-7 Assessment Billing DULCE-7 Assessment Tool: DULCE-7 Assessment 33676 Review of Systems Const All systems reviewed & are unremarkable except as noted in HPI and below Card Denies chest pain at rest, Denies chest pain with activity, Denies edema, Denies irregular heart rhythm, Denies claudication, Denies dyspnea, Denies dyspnea on exertion, Denies orthopnea, Denies paroxysmal nocturnal dyspnea and Denies slow heart rate Resp Denies cough, Denies dyspnea and Denies dyspnea on exertion Musc Reports arthralgias Physical exam (Primary Care) Vital Signs: Last Vital Signs BP 118/80 05/28/24 13:04 BMI result Body Mass Index 51.4 BMI Assessment/Plan discussion: High BMI High, discussed plan: lifestyle, weight reduction, dietary and physical activity Tobacco/Smoking Status: Tobacco use Status Tobacco use date assessed 11/17/22 05/28/24 12:58 Patient Tobacco Use Status Current everyday Tobacco 05/28/24 12:58 Tobacco use type Cigarette 05/28/24 12:58 e-Cigarette/Vaping Use Never Used 05/28/24 12:58 Are you ready to quit: No Tobacco cessation counseling provided: No PHQ-9: PHQ-9 Score PHQ-9: Total score 4 05/28/24 15:51 Depression Screening Interpretation: Positive Depression Screening Follow-up: Existing condition, In treatment, Community Mental Health Worker F/U and Follow- up Visit Requested Thrive Assessment: Date of Thrive Assessment Date Thrive assessed 05/28/24 05/28/24 13:03 Currently or been in a relationship where the following occur: No concerns reported Resp Effort & Inspection: normal respiratory effort Auscultation: clear to auscultation bilaterally Cardio Jugular venous distension: no JVD Rate: regular rate Rhythm: regular rhythm Heart sounds: S1 normal heart sound present and S2 normal heart sound present Extrem General: Yes full ROM Office Procedures Flu Questionnaire Does the patient have a severe egg allergy?: No Has the patient ever had any past reaction to a flu shot?: Yes Results AMB Hemoglobin A1c AMB Hemoglobin A1c 7.7 % Last Edit by MERON Joseph on 05/28/24 13:1 6 Immunizations Fluarix Triv [id number] (PF) 45 mcg (15 mcg x 3)/0.5 mL IM syringe Performing Provider: Tatiana Pina MD [place] [facility] [place] [facility] Documented (not given) by: MERON Joseph on 05/28/24 13:14 Reason Not Given: Patient Refused Results Reviewed Results Reviewed: Laboratory Last Values Hgb A1c (Clinic) 7.7 % (4.0-6.0) H 05/28/24 12:59 Coding Level of Care Code Est Pt Level 4 (14057) Complex EM visit Add On G2211 Diagnoses Chronic pain of right knee M25.561; G89.29 Chronicity: chronic Right hip pain M25.551 Morbid obesity due to excess calories E66.01 Asthma-COPD overlap syndrome J44.9 Type 2 diabetes mellitus with hyperglycemia, with long-term current use of insulin E11.65; Z79.4 Diabetes mellitus type: type 2 Diabetes mellitus exterminator insulin use: with alf use Diabetes mellitus complication status: with hyperglycemia Bipolar 1 disorder F31.9 Additional Codes DULCE-7 Assessment Billing - DULCE-7 Assessment Tool: DULCE-7 Assessment 36786 ([id number]) Time Spent (min) 23 Assessment & Plan Assessment & Plan (1) Right knee pain: Code(s): M25.561 - Pain in right knee Category: Medical Qualifiers: Chronicity: chronic Qualified Code(s): M25.561 - Pain in right knee; G89.29 - Other chronic pain Plan: X-ray ordered. Referred to Ortho. (2) Right hip pain: Code(s): M25.551 - Pain in right hip Category: Medical Plan: X-ray ordered. (3) Morbid obesity due to excess calories: Code(s): E66.01 - Morbid (severe) obesity due to excess calories Category: Medical Plan: Start diet and exercise. BMI goal is less than 30. (4) Asthma-COPD overlap syndrome: Code(s): J44.9 - Chronic obstructive pulmonary disease, unspecified Category: Medical Plan: Use rescue inhaler as needed. (5) Diabetes mellitus: Code(s): E11.9 - Type 2 diabetes mellitus without complications Category: Medical Qualifiers: Diabetes mellitus type: type 2 Diabetes mellitus alf insulin use: with exterminator use Diabetes mellitus complication status: with hyperglycemia Qualified Code(s): E11.65 - Type 2 diabetes mellitus with hyperglycemia; Z79.4 - exterminator (current) use of insulin Plan: Start metformin. A1c goal is equal or less than 7%. Start Ozempic. (6) Bipolar 1 disorder: Code(s): F31.9 - Bipolar disorder, unspecified Category: Medical Plan: Follow-up with psychiatry. Orders: Orders XR hip RT min 2V Today M25.551 - Pain in right hip Influenza [id number] Immunization Today Z23 - Encounter for immunization AMB Hemoglobin A1c Today E11.65 - Type 2 diabetes mellitus with hyperglycemia, Z79.4 - longterm (current) use of insulin XR knee RT 2V Today M25.561 - Pain in right knee Referrals Orthopedics Referral M25.561 - Pain in right knee Medications: New ipratropium-albuterol 0.5 mg-3 mg(2.5 mg base)/3 mL 3 mL inhalation Q6-8H PRN 90 mL 6RF shortness of breath 30 days [recliner] As directed 1 ea 0RF E66.01 - Morbid (severe) obesity due to excess calories, J44.9 - Chronic obstructive pulmonary disease, unspecified, M51.369 - Other intervertebral disc degeneration, lumbar region without mention of lumbar back pain or lower extremity pain semaglutide (Ozempic) for 4 weeks 0.25 mg (0.368 mL) subcut QWEEK 1.472 mL 0RF 4 weeks E11.65 - Type 2 diabetes mellitus with hyperglycemia, Z79.4 - longterm (current) use of insulin Refilled albuterol sulfate 2.5 mg (3 mL) inhalation Q4-6H PRN 180 mL 3RF shortness of breath or wheezing 90 days rosuvastatin 10 mg PO BEDTIME 90 tabs 1RF 90 days E78.5 - Hyperlipidemia, unspecified metformin 500 mg PO BID 180 tabs 1RF 90 days triamcinolone acetonide 0.5% 1 appl topical DAILY 15 grams 6RF 2 weeks cholecalciferol (vitamin D3) 25 mcg PO DAILY 90 caps 3RF 90 days Discontinued triamcinolone acetonide 0.1% Discontinued Reason: Patient Completed Course 1 appl topical DAILY 30 days 30 grams 1RF
[2024-05-28 13:04] VITALS: BP 118/80; BMI 51.4
== END 2024-05-28 13:40 | disposition home or self-care (01) ==
PROVIDERS: PCP Internal Medicine; Visit Provider Internal Medicine
DX: J44.9 Chronic obstructive pulmonary disease, unspecified (principal); E66.01 Morbid (severe) obesity due to excess calories; Z68.43 Body mass index [BMI] 50.0-59.9, adult; E11.65 Type 2 diabetes mellitus with hyperglycemia; Z79.4 Long term (current) use of insulin; F31.9 Bipolar disorder, unspecified; M25.561 Pain in right knee; G89.29 Other chronic pain; M25.551 Pain in right hip

== ENCOUNTER → 2024-05-28 12:57 | Outpatient (BNVA) | payer OTHER, SELFPAY | PROVIDERS: PCP Internal Medicine; Visit Provider Internal Medicine | DX: G89.29 Other chronic pain (principal); M25.561 Pain in right knee; M25.551 Pain in right hip; E11.65 Type 2 diabetes mellitus with hyperglycemia; E66.01 Morbid (severe) obesity due to excess calories; Z68.43 Body mass index [BMI] 50.0-59.9, adult; J44.9 Chronic obstructive pulmonary disease, unspecified; F31.9 Bipolar disorder, unspecified; Z79.4 Long term (current) use of insulin | CPT/HCPCS: 83036; 90471; 96127; 99212 ==

== ENCOUNTER 2024-06-18 10:05 | Outpatient (REF) | payer OTHER, SELFPAY | END 2024-06-18 10:06 | disposition home or self-care (01) | LOC: HO.HOSX 10:05 | PROVIDERS: Visit Provider Orthopaedic Surgery | DX: Z13.89 Encounter for screening for other disorder (principal) ==

== ENCOUNTER 2024-07-28 16:48 | Outpatient (AMB) | payer OTHER, SELFPAY ==
[2024-07-28 16:47] VITALS: BMI 51.4
--- NOTE | 2024-07-28 16:47 | A.OFFPC_ITS ---
Vital Signs 07/28/24 16:47 Height 5 ft 2 in Weight 281 lb BMI 51.4 Intake Visit Reasons: weight check Certified Recreational Therapist Required: No Accompanied by: Self / Same As Patient Allergies umeclidinium [Incruse Ellipta] Allergy (Intermediate, Verified 05/28/24 13:22) nausea varenicline [From Chantix] Allergy (Intermediate, Verified 05/28/24 13:22) Palpitations,headache Tobacco use date assessed: 11/17/22 Dental Screening Dental Screen Date: 07/04/23 [facility] Medical History Hypovitaminosis D Cervical lymphadenopathy Chest pain Unintentional weight loss Skin lesion Right knee pain Left knee pain Right upper limb pain Abscess Coarse tremors Physical exam Morbid obesity due to excess calories Right shoulder pain Left breast mass Screening for breast cancer Seborrheic dermatitis Breast mass, right Lumbar degenerative disc disease Urge urinary incontinence Diabetes mellitus Psoriasiform dermatitis Insomnia Depression with anxiety Bipolar 1 disorder Migraines Obese Mild asthma Surgical History History of mammogram History of tubal ligation History of laparoscopic cholecystectomy Tubal ligation status S/P cholecystectomy Family History Father Stomach cancer Mother No problems noted. Maternal Grandmother Diabetes Hypertension CVD (cardiovascular disease) Brother No problems noted. Brother No problems noted. Sister No problems noted. Son No problems noted. Daughter No problems noted. Daughter No problems noted. Daughter No problems noted. Social History Household Members: None Housing: House Are you a primary day care supervisor to a significant other at home: No Do you presently have visiting nurse or other home services: No Alcohol intake: never Patient Tobacco Use Status: Current everyday Tobacco user Tobacco use type: Cigarette Cigarette Packs Per Day: 1 e-Cigarette/Vaping Use: Never Used Second Hand Smoke Exposure: No service: No Current occupational status: disabled Cognitive needs: Yes Hearing needs: No Vision needs: No Questionnaire Thrive Questionnaire Date Thrive assessed: 05/28/24 DULCE-7 AMB Questionnaire DULCE-7 Date DULCE - 7 assessed: 05/28/24 Source: Developed by Drs. Gustavo Raymond, Felicia Patino, Ramon Kendrick and colleagues, with an educational perla from [employer]. Physical exam (Primary Care) BMI result Body Mass Index 51.4 Tobacco/Smoking Status: Tobacco use Status Tobacco use date assessed 11/17/22 07/28/24 16:47 Patient Tobacco Use Status Current everyday Tobacco 07/28/24 16:47 Tobacco use type Cigarette 07/28/24 16:47 e-Cigarette/Vaping Use Never Used 07/28/24 16:47 Thrive Assessment: Date of Thrive Assessment Date Thrive assessed 05/28/24 07/28/24 16:47 Coding Level of Care Code Procedure Only Diagnoses Obese E66.9 Assessment & Plan Assessment & Plan (1) Obese: Code(s): E66.9 - Obesity, unspecified Category: Medical Plan: Continue diet and exercise.
== END 2024-07-28 16:52 | disposition home or self-care (01) ==
LOC: HO.HMCH 16:48
PROVIDERS: PCP Internal Medicine; Visit Provider Internal Medicine
DX: E66.9 Obesity, unspecified (principal); Z68.43 Body mass index [BMI] 50.0-59.9, adult

== ENCOUNTER → 2024-07-28 16:48 | Outpatient (BNVA) | payer OTHER, SELFPAY | PROVIDERS: PCP Internal Medicine; Visit Provider Internal Medicine | DX: E66.9 Obesity, unspecified (principal); Z68.43 Body mass index [BMI] 50.0-59.9, adult | CPT/HCPCS: 99212 ==

== ENCOUNTER 2024-09-16 07:36 | Outpatient (REF) | payer OTHER, SELFPAY | END 2024-09-16 07:37 | disposition home or self-care (01) | LOC: HO.XRAY 07:36 | PROVIDERS: PCP Internal Medicine; Visit Provider Orthopaedic Surgery | DX: M25.561 Pain in right knee (principal); G89.29 Other chronic pain | CPT/HCPCS: 73562 ==

== ENCOUNTER → 2024-09-16 07:39 | Outpatient (BNV) | payer OTHER, SELFPAY | PROVIDERS: PCP Internal Medicine; Visit Provider Radiology Diagnostic Radiology | DX: M25.561 Pain in right knee (principal) | CPT/HCPCS: 73562 ==

== ENCOUNTER 2024-11-05 11:20 | Emergency (ER) | payer OTHER, SELFPAY | END 2024-11-05 13:50 | disposition left against medical advice (07) | PROVIDERS: Emergency Provider Emergency Medicine; PCP Internal Medicine | DX: R39.89 Other symptoms and signs involving the genitourinary system (principal) ==

== ENCOUNTER 2024-11-05 15:15 | Outpatient (REF) | payer OTHER, SELFPAY ==
[2024-11-05 16:06] LABS: Appearance Urine Hazy; Color Urine Yellow; Glucose Urine UA Negative (Negative); Leukocyte Esterase Urine Negative (Negative); Nitrite Urine Negative (Negative); Specific Gravity - Urine >= 1.030 (1.005-1.025); Urine Blood Negative (Negative); Urine Ketones Negative (Negative); Urine Protein Trace mg/dL (Neg-Trace)
[2024-11-05 16:12] LABS: Estimated Average Glucose 160 mg/dL; Hemoglobin A1C 210.6008 umol/L; Hemoglobin A1c % 7.2 % (<6.0); Total Hemoglobin (HGBA1C) 3844.9991 umol/L
[2024-11-05 16:37] LABS: Creatinine Urine 226.22 mg/dL; Microalbum/Creatinine Ratio Ur 9.7 ug/mg cr (<30)
[2024-11-05 17:15] LABS: Alanine Aminotransferase 25 U/L (0-31); Albumin Level 4.1 g/dL (3.5-5.0); Alkaline Phosphatase 65 U/L (39-117); Anion Gap 12 (12-20); Aspartate Amino Transferase 21 U/L (5-31); Bilirubin Total 0.3 mg/dL (0.0-1.0); Blood Urea Nitrogen 6 mg/dL (9-16); Calcium 9.7 mg/dL (8.4-10.2); Carbon Dioxide 29 mmol/L (22-29); Chloride 103 mmol/L (96-108); Cholesterol 170 mg/dL (<200); Estimated Glomerular Filt Rate > 60; Glucose Fasting 119 mg/dL (60-99); HDL Cholesterol 42 mg/dL (>40); LDL Cholesterol Calculated 113 mg/dL (<100); Potassium 3.8 mmol/L (3.3-5.1); Sodium 140 mmol/L (135-145); Total Protein 7.8 g/dL (6.5-8.0); Triglycerides 77 mg/dL (<150)
== END 2024-11-05 15:16 | disposition home or self-care (01) ==
LOC: HO.LAB 15:15
PROVIDERS: PCP Internal Medicine; Visit Provider Internal Medicine
DX: E78.5 Hyperlipidemia, unspecified (principal); E11.40 Type 2 diabetes mellitus with diabetic neuropathy, unspecified; R30.0 Dysuria; E11.9 Type 2 diabetes mellitus without complications
CPT/HCPCS: 36415; 80053; 80061; 81003; 82043; 82570; 83036

== ENCOUNTER 2024-11-17 17:56 | Emergency (ER) | payer OTHER, SELFPAY ==
--- NOTE | ~2024-11-17 | XR_ITS ---
CLINICAL HISTORY: sob 2 view chest x-ray Comparison: Chest x-ray from 07/05/2022 Findings: No consolidation, pneumothorax, or pleural effusion. Small calcified remnants of old granulomatous process again noted. Imaged mediastinum and imaged osseous structures are unchanged. IMPRESSION: No consolidation. This document has been electronically signed by: Topher Betancur MD on 11/17/2024 19:26:00
[2024-11-17 18:27] VITALS: BP 132/86; PULSE 120; RESP 22; TEMP 37.2; O2SAT 95; BMI 48.7
--- NOTE | 2024-11-17 18:30 | ED_ITS ---
HPI - SOB/Dyspnea General Chief Complaint: Dyspnea Stated Complaint: SOB / nausea Related Data Home Medications ?Medication ?Instructions ?Recorded ?Confirmed zolpidem 10 mg tablet 10 mg PO BEDTIME 04/27/21 05/28/24 lemborexant 10 mg tablet (Dayvigo) 10 mg PO BEDTIME 05/28/24 05/28/24 lorazepam 2 mg tablet 2 mg PO BID PRN 05/28/24 05/28/24 lurasidone 40 mg tablet mg PO 05/28/24 05/28/24 paroxetine HCl 10 mg tablet 10 mg PO DAILY 05/28/24 05/28/24 Previous Rx's ?Medication ?Instructions ?Recorded miscellaneous medical supply #1 ea 10/13/20 incontinence pad, liner, disp #60 ea 12/31/20 (Bladder Control Pads) blood-glucose meter (FreeStyle #1 ea 04/27/21 [place] Lite kit) lancets 28 gauge (FreeStyle #100 ea 04/27/21 Lancets) walker #1 ea 10/19/21 cane #1 ea 12/20/22 underpads (Bed Underpads) #60 ea 12/20/22 versaframe #2 ea 12/20/22 wheelchai #1 ea 12/20/22 miscellaneous medical supply 1 ea miscellaneous .daily #1 ea 12/25/22 bed rails #2 ea 12/28/22 pull-ups adult #120 ea 12/28/22 shower seat #1 ea 12/28/22 underpads (Bed Underpads) #100 ea 12/28/22 Shower Chair #1 ea 01/12/23 raised toilet seat #1 ea 01/12/23 blood sugar diagnostic (FreeStyle #100 ea 07/04/23 Test strips) blood sugar diagnostic (OneTouch #100 ea 07/07/23 Ultra Test strips) blood-glucose meter (OneTouch #1 ea 07/07/23 Ultra2 Meter) lancets 30 gauge (OneTouch #100 ea 07/07/23 UltraSoft 2 Lancet) olopatadine 0.2 % eye drops 1 drp ophthalmic (eye) DAILY PRN 07/16/23 (Pataday Once Daily Relief) itching 30 days #2.5 mL cromolyn 4 % eye drops 1 drp ophthalmic (eye) QID #10 mL 02/20/24 latanoprost 0.005 % eye drops 1 drp ophthalmic (eye) BEDTIME 30 09/25/23 days #7.5 mL neomycin 3.5 mg/g-polymyxin B 0.5 inch ophthalmic (eye) TID 14 09/25/23 10,000 unit/g-dexameth 0.1 % eye days #3.5 grams oint cyclobenzaprine 10 mg tablet 10 mg PO TID PRN muscle spasm #20 05/04/24 tabs albuterol sulfate 2.5 mg/3 mL 2.5 mg (3 mL) inhalation Q4-6H PRN 05/28/24 (0.083 %) solution for nebulization shortness of breath or wheezing 90 days #180 mL cholecalciferol (vitamin D3) 25 25 mcg PO DAILY 90 days #90 caps 05/28/24 mcg (1,000 unit) capsule ipratropium 0.5 mg-albuterol 3 mg 3 ml inhalation Q6-8H PRN 05/28/24 (2.5 mg base)/3 mL nebulization shortness of breath 30 days #90 mL soln recliner #1 ea 05/28/24 semaglutide 0.25 mg or 0.5 mg (2 0.25 mg (0.368 mL) subcut QWEEK 4 07/25/24 mg/3 mL) subcutaneous pen injector weeks #1.472 mL (Ozempic) semaglutide 0.25 mg or 0.5 mg (2 0.5 mg (0.736 mL) subcut QWEEK 4 07/29/24 mg/3 mL) subcutaneous pen injector weeks #2.944 mL (Ozempic) tiotropium 2.5 mcg-olodaterol 2.5 2 puff inhalation DAILY 30 days #1 08/29/24 mcg/actuation mist for inhalation ea (Stiolto Respimat) acetaminophen 500 mg tablet 500 mg PO Q6H PRN pain or fever 30 09/08/24 (Tylenol Extra Strength) days #90 tabs rosuvastatin 10 mg tablet 10 mg PO BEDTIME 90 days #90 tabs 10/11/24 metformin 500 mg tablet 500 mg PO BID 90 days #180 tabs 11/09/24 albuterol sulfate 90 mcg/actuation 1 puff PO QID PRN for wheezing 11/14/24 aerosol inhaler #8.5 ea triamcinolone acetonide 0.5 % 1 appl topical DAILY 2 weeks #15 11/14/24 topical cream grams Allergies Allergy/AdvReac Type Severity Reaction Status Date / Time umeclidinium Allergy Intermediate nausea Verified 11/17/24 18:28 [Incruse Ellipta] varenicline [From Chantix] Allergy Intermediate Palpitation Verified 11/17/24 18:28 s,headache PMFSH Past Medical History Medical History Hypovitaminosis D Cervical lymphadenopathy Chest pain Unintentional weight loss Skin lesion Right knee pain Left knee pain Right upper limb pain Abscess Coarse tremors Physical exam Morbid obesity due to excess calories Right shoulder pain Left breast mass Screening for breast cancer Seborrheic dermatitis Breast mass, right Lumbar degenerative disc disease Urge urinary incontinence Diabetes mellitus Psoriasiform dermatitis Insomnia Depression with anxiety Bipolar 1 disorder Migraines Obese Mild asthma Surgical History History of mammogram History of tubal ligation History of laparoscopic cholecystectomy Tubal ligation status S/P cholecystectomy Family History Family History Father Stomach cancer Mother No problems noted. Maternal Grandmother Diabetes Hypertension CVD (cardiovascular disease) Brother No problems noted. Brother No problems noted. Sister No problems noted. Son No problems noted. Daughter No problems noted. Daughter No problems noted. Daughter No problems noted. Social History Social History Household Members: None Housing: House Are you a primary wound care nurse to a significant other at home: No Do you presently have visiting nurse or other home services: No Alcohol intake: never Patient Tobacco Use Status: Current everyday Tobacco user Tobacco use type: Cigarette Cigarette Packs Per Day: 1 e-Cigarette/Vaping Use: Never Used Second Hand Smoke Exposure: No Advance Directives: No Advance Directives Information Provided: No Do you have a plan to hurt others: No Plan service: No Current occupational status: disabled Cognitive needs: Yes Hearing needs: No Vision needs: No Physical Exam 2 Vital Signs: Vital Signs: Last Vital Signs Temp 98.9 F 11/17/24 18:27 Pulse 88 11/17/24 19:18 Resp 26 H 11/17/24 19:18 BP 132/86 11/17/24 18:27 Pulse Ox 95 11/17/24 18:27 O2 Del Method Room Air 11/17/24 18:27 BMI result Body Mass Index 48.7 Course Course Course Narrative: This is a Rapid Medical Examination (RME) performed by Auyr Bishop PA-C in triage. Full HPI, ROS, assessment and treatment plan per primary provider in the Main ED. 11/17/24 1830 SHEILA Mckeon Hx: 54 yo armenian speaking female hx asthma/copd, HLD, DM, KENNEDY, bipolar disorder here for eval of shortness of breath since yesterday. reports YAP. using inhaler/ neb at home w/o improvement. admits to smoking 1/2 PPD. no known sick contacts. PE/vitals: O2 sat 95%, diffuse expiratory wheezes. speaking in complete sentences. no tripoding or respiratory distress. Plan: labs, viral swabs, ekg, cxr, ed bronch protocol Reevaluation(s) Reevaluation #1: Patient left the emergency department before myself or any of the other clinicians could review or explain physical exam findings, test results, need or lack there of for additional testing, treatment options, or a treatment plan. Medications Administered Discontinued Medications Generic Name Dose Route Start Last Admin Trade Name Freq PRN Reason Stop Dose Admin Albuterol Sulfate 2.5 mg/ 0 mg 11/17/24 19:12 11/17/24 19:17 Albuterol/Ipratropium 3 ml INHALE 11/17/24 19:13 Not Given ONCE ONE Albuterol Sulfate 5 mg/ 0 mg 11/17/24 19:13 11/17/24 19:17 Albuterol/Ipratropium 3 ml INHALE 11/17/24 19:14 1 each ONCE ONE Administration Medical Decision Making Lab Data 11/17/24 19:08 11/17/24 19:08 Labs: Lab Results 11/17/24 Range/Units 19:08 WBC 7.2 (4.8-10.8) X10*3/uL RBC 5.09 (4.20-5.50) X10*6/uL Hgb 14.7 (12.0-16.0) g/dl Hct 43.6 (37.0-47.0) % MCV 85.7 (80.0-98.0) fL MCH 28.9 (27.0-33.0) pg MCHC 33.7 (31.0-35.0) g/dl RDW 13.2 (11.0-16.0) % Plt Count 263 (160-400) X10*3/uL MPV 11.3 (9.4-12.3) fL Immature Gran % (Auto) 1.1 H (0.0-0.4) % Neut % (Auto) 75.7 H (45-73) % Lymph % (Auto) 15.2 L (20-40) % Moody % (Auto) 4.7 (2-11) % Eos % (Auto) 2.6 (0-4) % Baso % (Auto) 0.7 (0-2) % Lymph # (Auto) 1.1 L (1.2-4.9) X10*3/uL Moody # (Auto) 0.3 (0.1-1.2) X10*3/uL Eos # (Auto) 0.2 (0.0-0.4) X10*3/uL Baso # (Auto) 0.1 (0.0-0.2) X10*3/uL Abs Immat Gran (auto) 0.08 H (0.00-0.03) X10*3/uL Absolute Neuts (auto) 5.4 (2.0-8.3) x10*3/uL Absolute Nucleated RBC 0.000 (0.0-0.012) X10*3/uL Nucleated RBC % (auto) 0.0 (0.0-0.2) /100WBC Sodium 138 (135-145) mmol/L Potassium 3.5 (3.3-5.1) mmol/L Chloride 104 (96-108) mmol/L Carbon Dioxide 27 (22-29) mmol/L Anion Gap 11 L (12-20) BUN 6 L (9-16) mg/dL Creatinine 0.70 (0.5-1.4) mg/dL Estim Creat Clear Calc 115.2 Estimated GFR > 60 Random Glucose 141 H (60-115) mg/dL Calcium 9.9 (8.4-10.2) mg/dL Magnesium 2.0 (1.6-2.6) mg/dL Total Bilirubin 0.2 (0.0-1.0) mg/dL AST 21 (5-31) U/L ALT 21 (0-31) U/L Alkaline Phosphatase 70 (39-117) U/L Troponin I High Sens < 2.7 (<3.5-17.0) ng/L Total Protein 7.9 (6.5-8.0) g/dL Albumin 4.2 (3.5-5.0) g/dL Influenza Type A (PCR) NEGATIVE (Negative) Influenza Type B (PCR) NEGATIVE (Negative) RSV RNA Qual (PCR) NEGATIVE (Negative) SARS-CoV-2 RNA (RT-PCR) NEGATIVE (Negative) Discharge Plan Discharge Clinical Impression: Shortness of breath Patient Disposition: Left W/O Completing Treatment Prescriptions: No Action (DME) Bladder Control Pads Pad See Rx Instructions .ROUTE .MEDSUPPLY Qty: 60 11RF Rx Instructions: Use 1 pad twice a day as needed miscellaneous medical supply Kit 1 ea miscellaneous .daily Qty: 1 0RF Rx Instructions: finished metal repairer pads and bed side table (DME) bed rails See Rx Instructions .Route .MEDSUPPLY Qty: 2 0RF Rx Instructions: As directed (DME) shower seat See Rx Instructions .Route .MEDSUPPLY Qty: 1 0RF Rx Instructions: As directed (DME) pull-ups adult XXX-large See Rx Instructions .Route .MEDSUPPLY Qty: 120 11RF Rx Instructions: As directed (DME) underpads [Bed Underpads] Pad See Rx Instructions .Route Qty: 100 6RF Rx Instructions: Use 2 to 4 as needed daily (DME) raised toilet seat See Rx Instructions .Route .MEDSUPPLY Qty: 1 0RF Rx Instructions: As directed (DME) Shower Chair Misc See Rx Instructions .Route Qty: 1 0RF Rx Instructions: As directed (DME) OneTouch Ultra Test Strip See Rx Instructions .Route Qty: 100 3RF Rx Instructions: Use 1 test strip once a day (DME) lancets [OneTouch UltraSoft 2 Lancet] 30 gauge misc See Rx Instructions .Route Qty: 100 3RF Rx Instructions: Use 1 lancet once a day (DME) blood-glucose meter [[employer] Ultra2 Meter] Misc See Rx Instructions .Route Qty: 1 0RF Rx Instructions: As directed olopatadine [Pataday Once Daily Relief] 0.2 % drops 1 drp ophthalmic (eye) DAILY PRN (Reason: itching) 30 Days Qty: 2.5 1RF cromolyn 4 % drops 1 drp ophthalmic (eye) QID Qty: 10 2RF latanoprost 0.005 % drops 1 drp ophthalmic (eye) BEDTIME 30 Days Qty: 7.5 3RF neomycin-polymyxin B-dexameth 3.5 mg/g-10,000 unit/g-0.1 % ointment 0.5 inch ophthalmic (eye) TID 14 Days Qty: 3.5 6RF Ozempic 0.25 mg or 0.5 mg (2 mg/3 mL) pen injector 0.25 mg subcut QWEEK 28 Days Qty: 1.472 0RF Rx Instructions: for 4 weeks Ozempic 0.25 mg or 0.5 mg (2 mg/3 mL) pen injector 0.5 mg subcut QWEEK 28 Days Qty: 2.944 0RF Stiolto Respimat 2.5-2.5 mcg/actuation mist 2 puff inhalation DAILY 30 Days Qty: 1 6RF acetaminophen [Tylenol Extra Strength] 500 mg tablet 500 mg PO Q6H PRN (Reason: pain or fever) 30 Days Qty: 90 6RF rosuvastatin 10 mg tablet 10 mg PO BEDTIME 90 Days Qty: 90 1RF metformin 500 mg tablet 500 mg PO BID 90 Days Qty: 180 1RF triamcinolone acetonide 0.5 % cream 1 appl topical DAILY 14 Days Qty: 15 6RF albuterol sulfate 90 mcg/actuation HFA aerosol inhaler 1 puff PO QID PRN (Reason: for wheezing) Qty: 8.5 6RF cyclobenzaprine 10 mg tablet 10 mg PO TID PRN (Reason: muscle spasm) Qty: 20 0RF (DME) walker Misc See Rx Instructions .ROUTE .MEDSUPPLY Qty: 1 0RF Rx Instructions: As directed (DME) miscellaneous medical supply Misc See Rx Instructions .ROUTE .MEDSUPPLY Qty: 1 0RF Rx Instructions: As directed zolpidem 10 mg tablet 10 mg PO BEDTIME (DME) blood-glucose meter [FreeStyle [place] Lite] Kit See Rx Instructions .ROUTE .MEDSUPPLY Qty: 1 0RF Rx Instructions: As directed (DME) lancets [FreeStyle Lancets] [facility] See Rx Instructions .ROUTE .MEDSUPPLY Qty: 100 3RF Rx Instructions: Use 1 lancet once a day (DME) underpads [Bed Underpads] Pad See Rx Instructions .ROUTE .MEDSUPPLY Qty: 60 11RF Rx Instructions: Use 1 underpad twice a day as needed (DME) versaframe See Rx Instructions .Route .MEDSUPPLY Qty: 2 0RF Rx Instructions: As directed (DME) cane Device See Rx Instructions .Route Qty: 1 0RF Rx Instructions: As directed (DME) wheelchai See Rx Instructions .Route .MEDSUPPLY Qty: 1 0RF Rx Instructions: As directed (DME) FreeStyle Test Strip See Rx Instructions .ROUTE .MEDSUPPLY Qty: 100 3RF Rx Instructions: Use 1 test strip once a day paroxetine HCl 10 mg tablet 10 mg PO DAILY lorazepam 2 mg tablet 2 mg PO BID PRN lurasidone 40 mg tablet PO Dayvigo 10 mg tablet 10 mg PO BEDTIME albuterol sulfate 2.5 mg /3 mL (0.083 %) solution for nebulization 2.5 mg inhalation Q4-6H PRN (Reason: shortness of breath or wheezing) 90 Days Qty: 180 3RF cholecalciferol (vitamin D3) 25 mcg (1,000 unit) capsule 25 mcg PO DAILY 90 Days Qty: 90 3RF ipratropium-albuterol 0.5 mg-3 mg(2.5 mg base)/3 mL solution for nebulization 3 ml inhalation Q6-8H PRN (Reason: shortness of breath) 30 Days Qty: 90 6RF (DME) recliner See Rx Instructions .Route .MEDSUPPLY Qty: 1 0RF Rx Instructions: As directed Discharge Date/Time: 11/17/24 22:52
--- NOTE | 2024-11-17 18:31 | ECG_ITS ---
Test Reason : sob Blood Pressure : */* mmHG Vent. Rate : 102 BPM Atrial Rate : 102 BPM P-R Int : 148 ms QRS Dur : 68 ms QT Int : 354 ms P-R-T Axes : 69 39 59 degrees QTcB Int : 461 ms Sinus tachycardia Otherwise normal ECG When compared with ECG of 04-May-2024 21:57, No significant change was found Referred By: Malka Bishop Electronically Signed By: LAKISHA CESPEDES MD
[2024-11-17 19:15] LABS: MANUAL DIFF FLAG NO
[2024-11-17] MEDS: Albuterol Sulfate 5 MG, Albuterol/Iprat 2.5/0.5MG 3 ML 3 ML INHALE (19:17)
[2024-11-17 19:18] VITALS: PULSE 88; RESP 26; O2SAT 93
[2024-11-17 19:31] LABS: Alanine Aminotransferase 21 U/L (0-31); Albumin Level 4.2 g/dL (3.5-5.0); Alkaline Phosphatase 70 U/L (39-117); Anion Gap 11 (12-20); Aspartate Amino Transferase 21 U/L (5-31); Bilirubin Total 0.2 mg/dL (0.0-1.0); Blood Urea Nitrogen 6 mg/dL (9-16); Calcium 9.9 mg/dL (8.4-10.2); Carbon Dioxide 27 mmol/L (22-29); Chloride 104 mmol/L (96-108); Creatinine Clr Calc Pharmacy 115.2; Estimated Glomerular Filt Rate > 60; Glucose Random 141 mg/dL (60-115); Potassium 3.5 mmol/L (3.3-5.1); Sodium 138 mmol/L (135-145); Total Protein 7.9 g/dL (6.5-8.0)
[2024-11-17 19:37] LABS: Basophils Absolute Auto 0.1 X10*3/uL (0.0-0.2); Basophils Percent Auto 0.7 % (0-2); Eosinophils Absolute Auto 0.2 X10*3/uL (0.0-0.4); Eosinophils Percent Auto 2.6 % (0-4); Hematocrit 43.6 % (37.0-47.0); Hemoglobin 14.7 g/dl (12.0-16.0); Imm Gran Abs Auto 0.08 X10*3/uL (0.00-0.03); Imm Gran Pct Auto 1.1 % (0.0-0.4); Lymphocytes Absolute Auto 1.1 X10*3/uL (1.2-4.9); Lymphocytes Percent Auto 15.2 % (20-40); Mean Corpuscular HGB Conc 33.7 g/dl (31.0-35.0); Mean Corpuscular Hemoglobin 28.9 pg (27.0-33.0); Mean Corpuscular Volume 85.7 fL (80.0-98.0); Mean Platelet Volume 11.3 fL (9.4-12.3); Monocytes Absolute Auto 0.3 X10*3/uL (0.1-1.2); Monocytes Percent Auto 4.7 % (2-11); Neutrophils Absolute Auto 5.4 x10*3/uL (2.0-8.3); Neutrophils Percent Auto 75.7 % (45-73); Platelet Count 263 X10*3/uL (160-400); Red Blood Count 5.09 X10*6/uL (4.20-5.50); Red Cell Distribution Width 13.2 % (11.0-16.0); White Blood Count 7.2 X10*3/uL (4.8-10.8)
[2024-11-17 19:41] LABS: Troponin-I High Sensitivity < 2.7 ng/L (<3.5-17.0)
[2024-11-17 19:54] LABS: Influenza A PCR NEGATIVE (Negative); Influenza B PCR NEGATIVE (Negative); Resp Syncy Virus RNA Qual PCR NEGATIVE (Negative); SARS COV2 PCR INHOUSE NEGATIVE (Negative)
== END 2024-11-17 22:52 | disposition left against medical advice (07) ==
PROVIDERS: Physician Assistant Medical; Emergency Provider Emergency Medicine; PCP Internal Medicine
DX: R06.02 Shortness of breath (principal); R11.0 Nausea; R00.0 Tachycardia, unspecified; F17.210 Nicotine dependence, cigarettes, uncomplicated; Z79.899 Other long term (current) drug therapy; Z03.818 Encounter for observation for suspected exposure to other biological agents ruled out
CPT/HCPCS: 0241U; 71046; 80053; 83735; 84484; 85025; 93005; 94640; 99284

== ENCOUNTER → 2024-11-17 18:31 | Outpatient (BNV) | payer OTHER, SELFPAY | PROVIDERS: PCP Internal Medicine; Visit Provider Radiology Neuroradiology | DX: R06.02 Shortness of breath (principal) | CPT/HCPCS: 71046 ==

== ENCOUNTER → 2024-11-17 18:31 | Outpatient (BNV) | payer OTHER, SELFPAY | PROVIDERS: Emergency Provider Emergency Medicine; PCP Internal Medicine; Visit Provider Internal Medicine Cardiovascular Disease | DX: R00.0 Tachycardia, unspecified (principal) | CPT/HCPCS: 93010 ==

== ENCOUNTER 2025-04-14 13:52 | Outpatient (AMB) | payer OTHER, SELFPAY ==
[2025-04-14 14:01] VITALS: BP 128/72; PULSE 100; RESP 18; TEMP 36.2; O2SAT 92; BMI 50.3
--- NOTE | 2025-04-14 14:01 | MHC.PC.OV ---
Vital Signs 04/14/25 14:01 Height 5 ft 3 in Weight 284 lb 2 oz BMI 50.3 BP 128/72 Blood Pressure Location Lt brachial Position Sitting Respiration 18 Pulse 100 Pulse Source Pulse Oximeter Temp 97.1 F Temp Source Temporal Artery Scan Pulse Oximetry (%) 92 Oxygen Delivery Method Room Air Intake Visit Reasons: PE- needs A1C & pt requests to discuss mammo. Bindery Worker Required: No Accompanied by: Self / Same As Patient Allergies umeclidinium (Incruse Ellipta) Allergy (Intermediate, Verified 04/14/25 14:31) nausea varenicline (From Chantix) Allergy (Intermediate, Verified 04/14/25 14:31) Palpitations,headache Medication List - Last Reconciled 04/14/25 by Tatiana Pina MD acetaminophen (Tylenol Extra Strength) 500 mg PO Q6H PRN 30 days albuterol sulfate 2.5 mg (3 mL) inhalation Q4-6H PRN 90 days albuterol sulfate 90 mcg/actuation 1 puff PO QID PRN [bed rails As directed] blood sugar diagnostic (FreeStyle Test strips) Use 1 test strip once a day blood sugar diagnostic (OneTouch Ultra Test strips) Use 1 test strip once a day blood-glucose meter (FreeStyle [place] Lite kit) As directed blood-glucose meter (OneTouch Ultra2 Meter) As directed cane As directed cholecalciferol (vitamin D3) 25 mcg PO DAILY 90 days cyclobenzaprine 10 mg PO TID PRN incontinence pad, liner, disp (Bladder Control Pads) Use 1 pad twice a day as needed ipratropium-albuterol 0.5 mg-3 mg(2.5 mg base)/3 mL 3 mL inhalation Q6-8H PRN 30 days lancets (FreeStyle Lancets) Use 1 lancet once a day lancets (OneTouch UltraSoft 2 Lancet) Use 1 lancet once a day lemborexant (Dayvigo) 10 mg PO BEDTIME lorazepam 2 mg PO BID PRN lurasidone mg PO metformin 500 mg PO BID 90 days miscellaneous medical supply As directed miscellaneous medical supply 1 ea miscellaneous .daily neomycin-polymyxin B-dexameth 3.5 mg/g-10,000 unit/g-0.1 % 0.5 inches ophthalmic (eye) TID 14 days olopatadine 0.2% (Pataday Once Daily Relief) 1 drp ophthalmic (eye) DAILY PRN 30 days paroxetine HCl 10 mg PO DAILY [pull-ups adult As directed] [raised toilet seat As directed] [recliner As directed] rosuvastatin 10 mg PO BEDTIME 90 days semaglutide (Ozempic) 0.5 mg (0.736 mL) subcut QWEEK 4 weeks semaglutide (Ozempic) 0.25 mg (0.368 mL) subcut QWEEK 4 weeks Shower Chair As directed [shower seat As directed] tiotropium-olodaterol 2.5-2.5 mcg/actuation (Stiolto Respimat) 2 puffs inhalation DAILY 30 days triamcinolone acetonide 0.5% 1 appl topical DAILY 2 weeks underpads (Bed Underpads) Use 2 to 4 as needed daily underpads (Bed Underpads) Use 1 underpad twice a day as needed [versaframe As directed] walker As directed [wheelchai As directed] zolpidem 10 mg PO BEDTIME Tobacco use date assessed: 04/14/25 Dental Screening Dental Screen Date: 04/14/25 Did you have a dental visit in the last 12 months?: Yes Did you have a dental problem in the last 6 months where you did not have access to dental care?: No Was dental information given to patient?: Patient has dentist HPI HPI Comments History of Present Illness Details This is a 54-year-old female with asthma-COPD overlap syndrome, diabetes mellitus type 2, bipolar disorder and mild recurrent major depression that comes for her physical exam. She admits not being compliant with her metformin or other medications. Complains of dizziness associated with right ear tinnitus that happens with changes in head position most likely due to benign paroxysmal positional vertigo and will be referred to vestibular therapy. Complains of right hearing loss and will have a hearing test. Complains of chronic low back pain and is asking for a Toradol injection every 3 months which I said we do not provide this here. Offer pain management but she declined. Says that NSAIDs and acetaminophen does not work for her pain. Will give her tramadol for 7 days to see if it relieves the pain. She still smokes and was advised to quit. She has super super obese with a BMI of 50.3 and was advised to do diet and exercise to reach BMI goal less than 30. Denies any chest pain or shortness on breath. Use rescue inhaler as needed. Depression is in remission. Her A1c is 8.4% today. She declines mammogram, Pap smear and any type of screening for colon cancer. [facility] Medical History Hypovitaminosis D Cervical lymphadenopathy Chest pain Unintentional weight loss Skin lesion Right knee pain Left knee pain Right upper limb pain Abscess Coarse tremors Physical exam Morbid obesity due to excess calories Right shoulder pain Left breast mass Screening for breast cancer Seborrheic dermatitis Breast mass, right Lumbar degenerative disc disease Urge urinary incontinence Diabetes mellitus Psoriasiform dermatitis Insomnia Depression with anxiety Bipolar 1 disorder Migraines Obese Mild asthma Surgical History History of mammogram History of tubal ligation History of laparoscopic cholecystectomy Tubal ligation status S/P cholecystectomy Family History Father Stomach cancer Mother No problems noted. Maternal Grandmother Diabetes Hypertension CVD (cardiovascular disease) Brother No problems noted. Brother No problems noted. Sister No problems noted. Son No problems noted. Daughter No problems noted. Daughter No problems noted. Daughter No problems noted. Social History Household Members: None Housing: House Are you a primary pet caregiver to a significant other at home: No Do you presently have visiting nurse or other home services: No Alcohol intake: never Patient Tobacco Use Status: Current everyday Tobacco user Tobacco use type: Cigarette Cigarette Packs Per Day: 1 e-Cigarette/Vaping Use: Never Used Second Hand Smoke Exposure: No service: No Current occupational status: disabled Cognitive needs: Yes Hearing needs: No Vision needs: No Questionnaire PHQ-9 Over the last 2 weeks, how often have you been bothered by any of the following problems? 1. Little interest or pleasure in doing things: several days 2. Feeling down, depressed, or hopeless: several days 3. Trouble falling or staying asleep, or sleeping too much: several days 4. Feeling tired or having little energy: not at all 5. Poor appetite or overeating: not at all 6. Feeling bad about yourself - or that you are a failure or have let yourself or your family down: several days 7. Trouble concentrating on things, such as reading the newspaper or watching television: not at all 8. Moving or speaking so slowly that other people could have noticed. Or the opposite - being so fidgety or restless that you have been moving around a lot more than usual: not at all 9. Thoughts that you would be better off or of hurting yourself in some way: not at all Total score: 4 Depression Screening Interpretation: Positive Depression Screening Follow-up: Existing condition, In treatment, Community Mental Health Worker F/U and Follow-up Visit Requested Depression Screening Done: Yes 67001 - PHQ-9 Billing: Yes Source: Developed by Drs. Gustavo Raymond, Felicia Patino, Ramon Kendrick and colleagues, with an educational perla from [employer]. Thrive Questionnaire Date Thrive assessed: 04/14/25 I am a: Patient What is your living situation today?: I have a steady place to live Within the past 12 months, did the food you bought not last and you didn't have the money to get more?: Never true Within the past 12 months, did you worry whether your food would run out before you got money to buy more?: Never true Do you have trouble paying for medicines?: No Do you have trouble getting transportation to medical appointments?: No Do you have trouble paying your heating and electricity bill?: No Do you have trouble taking care of your child, family member or friend?: No Do you have trouble with day-to-day activities such as bathing, preparing meals, shopping, managing finances, etc.?: Yes Are you currently unemployed and looking for a job?: No Are you interested in more education?: No Please select the resources that you would like help with: None Currently or been in a relationship where the following occur: No concerns reported THRIVE Score: 0 AUDIT C Alcohol Use Questionnaire (AUDIT-C) 1. How often do you have a drink containing alcohol?: Never Total Score: 0 Score Reviewed/Action Taken: No DULCE-7 AMB Questionnaire DULCE-7 Date DULCE - 7 assessed: 04/14/25 Feeling nervous, anxious, or on edge: 1 = Several days Not being able to stop or control worryin = Not at all Worrying too much about different things: 1 = Several days Trouble relaxin = Not at all Being so restless that it is hard to sit still: 0 = Not at all Becoming easily annoyed or irritable: 0 = Not at all Feeling afraid as if something awful might happen: 0 = Not at all Total DULCE-7 score (0-4 normal; 5-9 mild; 10-14 moderate; 15-21 severe): 2 Source: Developed by Drs. Gustavo Raymond, Felicia Patino, Ramon Kendrick and colleagues, with an educational perla from [employer]. DULCE-7 Assessment Billing DULCE-7 Assessment Tool: DULCE-7 Assessment 58294 Review of Systems Const All systems reviewed & are unremarkable except as noted in HPI and below Card Denies chest pain at rest, Denies chest pain with activity, Denies edema, Denies irregular heart rhythm, Denies claudication, Denies dyspnea, Denies dyspnea on exertion, Denies orthopnea, Denies paroxysmal nocturnal dyspnea and Denies slow heart rate Resp Denies cough, Denies dyspnea and Denies dyspnea on exertion GI Denies abdominal pain, Denies change in bowel habits, Denies excessive flatus, Denies nausea and Denies vomiting Denies urinary incontinence, Denies urinary hesitancy and Denies urinary urgency Musc Denies atrophy, Denies deformity and Denies limited range of motion Skin/Breast Denies bleeding lesions, Denies changing lesions and Denies rash Physical exam (Primary Care) Vital Signs: Last Vital Signs Temp 97.1 F 04/14/25 14:01 Pulse 100 04/14/25 14:01 Resp 18 04/14/25 14:01 BP 128/72 04/14/25 14:01 Pulse Ox 92 04/14/25 14:01 Oxygen Delivery Method Room Air 04/14/25 14:01 BMI result Body Mass Index 50.3 BMI Assessment/Plan discussion: High BMI High, discussed plan: lifestyle, weight reduction, dietary and physical activity Tobacco/Smoking Status: Tobacco use Status Tobacco use date assessed 04/14/25 04/14/25 14:05 Patient Tobacco Use Status Current everyday Tobacco 04/14/25 14:05 Tobacco use type Cigarette 04/14/25 14:05 e-Cigarette/Vaping Use Never Used 04/14/25 14:05 Are you ready to quit: No PHQ-9: PHQ-9 Score PHQ-9: Total score 4 04/14/25 15:14 Depression Screening Interpretation: Positive Depression Screening Follow-up: Existing condition, In treatment, Community Mental Health Worker F/U and Follow-up Visit Requested Thrive Assessment: Date of Thrive Assessment Date Thrive assessed 04/14/25 04/14/25 14:05 Currently or been in a relationship where the following occur: No concerns reported HENMT Head: Yes normal to inspection, Yes normocephalic and Yes atraumatic Ears: external ears normal Eyes General: appearance normal, both eyes and all related structures Eyelids: Yes eyelids normal Conjunctivae: conjunctivae normal Neck Neck: Yes normal visual inspection and Yes supple Resp Effort & Inspection: normal respiratory effort Auscultation: clear to auscultation bilaterally Cardio Jugular venous distension: no JVD Rate: regular rate Rhythm: regular rhythm Heart sounds: S1 normal heart sound present and S2 normal heart sound present GI Inspection: Yes normal to inspection Palpation (GI): Soft to palpation and nontender Auscultation: normal bowel sounds Skin General skin exam: no rashes or lesions noted Neuro General: no focal motor deficits Extrem General: Yes full ROM Psych Appearance: grossly normal Results AMB Hemoglobin A1c AMB Hemoglobin A1c 8.4 % Last Edit by MERON Barrientos on 04/14/25 15:06 Immunizations pneumoc 20-koko conj-dip cr(PF) 0.5 mL IM syringe Performing Provider: Tatiana Pina MD [place] [facility] [place] [facility] Administered by: Jayashree Bowie RN on 04/14/25 15:15 Dose Route Admin Location Dispensed Lot Number Expiration Date [facility] Quality Control Lab Technician 0.5 mL IM Right Deltoid 0.5 mL [id number] 05/05/27 [id number] [employer] Total Dispensed Waste 0.5 mL 0 % VIS Given Date VIS Provided VIS Publication Date 04/14/25 Single Vaccine 25 Eligibility Eligibility Date Funding Source Not [facility] Eligible 04/14/25 Private Boostrix Tdap 2.5 Lf unit-8 mcg-5 Lf/0.5 mL intramuscular syringe Performing Provider: Tatiana Pina MD [place] [facility] [place] [facility] Administered by: Jayashree Bowie RN on 04/14/25 15:13 Dose Route Admin Location Dispensed Lot Number Expiration Date [employer] Quality Control Lab Technician 0.5 mL IM Left Deltoid 0.5 mL [id number] 07/05/27 14568-446-02 [employer] Total Dispensed Waste 0.5 mL 0 % VIS Given Date VIS Provided VIS Publication Date 04/14/25 Single Vaccine 21 Eligibility Eligibility Date Funding Source Not [facility] Eligible 04/14/25 Private Results Reviewed Results Reviewed: Laboratory Last Values Hgb A1c (Clinic) 8.4 % (4.0-6.0) H 04/14/25 15:04 Coding Level of Care Code Est Pt Level 4 (17669) Est Pt Prev Care 40-64y(63971) Diagnoses Physical exam Z00.00 Asthma-COPD overlap syndrome J44.9 Lumbar degenerative disc disease M51.369 Polyarthralgia M25.50 BPPV (benign paroxysmal positional vertigo) H81.10 Hearing loss H91.90 Morbid obesity due to excess calories E66.01 Type 2 diabetes mellitus with hyperglycemia, with long-term current use of insulin E11.65; Z79.4 Diabetes mellitus complication status: with hyperglycemia Diabetes mellitus moth exterminator insulin use: with penitentiary use Diabetes mellitus type: type 2 Bipolar 1 disorder F31.9 Additional Codes DULCE-7 Assessment Billing - DULCE-7 Assessment Tool: DULCE-7 Assessment 06549 ([id number]) PHQ-9 - 14113 - PHQ-9 Billing: Yes ([id number]) Time Spent (min) 40 Assessment & Plan Assessment & Plan (1) Physical exam: Code(s): Z00.00 - Encounter for general adult medical examination without abnormal findings Category: Medical (2) Asthma-COPD overlap syndrome: Code(s): J44.9 - Chronic obstructive pulmonary disease, unspecified Category: Medical (3) Lumbar degenerative disc disease: Code(s): M51.369 - Other intervertebral disc degeneration, lumbar region without mention of lumbar back pain or lower extremity pain Category: Medical (4) Polyarthralgia: Code(s): M25.50 - Pain in unspecified joint Category: Medical (5) BPPV (benign paroxysmal positional vertigo): Code(s): H81.10 - Benign paroxysmal vertigo, unspecified ear Category: Medical (6) Hearing loss: Code(s): H91.90 - Unspecified hearing loss, unspecified ear Category: Medical (7) Morbid obesity due to excess calories: Code(s): E66.01 - Morbid (severe) obesity due to excess calories Category: Medical (8) Diabetes mellitus: Code(s): E11.9 - Type 2 diabetes mellitus without complications Category: Medical Qualifiers: Diabetes mellitus complication status: with hyperglycemia Diabetes mellitus penitentiary insulin use: with penitentiary use Diabetes mellitus type: type 2 Qualified Code(s): E11.65 - Type 2 diabetes mellitus with hyperglycemia; Z79.4 - correction (current) use of insulin (9) Bipolar 1 disorder: Code(s): F31.9 - Bipolar disorder, unspecified Category: Medical Plan Repeat in a year. Be compliant with your medications. Hearing test order for hearing loss. Tramadol trial for week for her lumbar degenerative disc disease. Referred to vestibular therapy for her vertigo. Continue cream for dermatitis. Patient declines dermatology referral or any other referral. Tdap vaccine and pneumonia vaccine done today. Orders: Orders PT Evaluation and Treatment Today H81.10 - Benign paroxysmal vertigo, unspecified ear Lipid Panel Today E78.5 - Hyperlipidemia, unspecified Microalbumin, Random (w Creat) Today R80.9 - Proteinuria, unspecified Vitamin D 25-OH Total Today E55.9 - Vitamin D deficiency, unspecified Comprehensive [place]. Panel Fast Today E11.65 - Type 2 diabetes mellitus with hyperglycemia, Z79.4 - correction (current) use of insulin AMB Hemoglobin A1c Today Z13.9 - Encounter for screening, unspecified TDaP Immunization Today Z23 - Encounter for immunization Pneumococcal 20 Immunization Today Z23 - Encounter for immunization Referrals Speech and Hearing Referral H91.90 - Unspecified hearing loss, unspecified ear Medications: New tramadol 50 mg PO BID PRN 14 tabs 0RF pain 7 days Refilled triamcinolone acetonide 0.5% 1 appl topical DAILY 2 weeks 30 grams 6RF triamcinolone acetonide 0.5% 1 appl topical DAILY 15 grams 11RF 2 weeks albuterol sulfate 90 mcg/actuation 1 puff PO QID PRN 8.5 ea 6RF for wheezing Z00.00 - Encounter for general adult medical examination without abnormal findings metformin 500 mg PO BID 180 tabs 1RF 90 days
== END 2025-04-14 15:07 | disposition home or self-care (01) ==
LOC: HO.HMCH 13:52
PROVIDERS: PCP Internal Medicine; Visit Provider Internal Medicine
DX: Z00.00 Encounter for general adult medical examination without abnormal findings (principal); J44.9 Chronic obstructive pulmonary disease, unspecified; Z68.43 Body mass index [BMI] 50.0-59.9, adult; E66.01 Morbid (severe) obesity due to excess calories; E11.65 Type 2 diabetes mellitus with hyperglycemia; Z79.4 Long term (current) use of insulin; F31.9 Bipolar disorder, unspecified; M51.369 Other intervertebral disc degeneration, lumbar region without mention of lumbar back pain or lower extremity pain; M25.50 Pain in unspecified joint; H81.10 Benign paroxysmal vertigo, unspecified ear; H91.90 Unspecified hearing loss, unspecified ear; Z23 Encounter for immunization

== ENCOUNTER → 2025-04-14 13:52 | Outpatient (BNVA) | payer OTHER, SELFPAY | PROVIDERS: PCP Internal Medicine; Visit Provider Internal Medicine | DX: Z00.00 Encounter for general adult medical examination without abnormal findings (principal); J44.89 Other specified chronic obstructive pulmonary disease; M51.369 Other intervertebral disc degeneration, lumbar region without mention of lumbar back pain or lower extremity pain; E11.9 Type 2 diabetes mellitus without complications; F31.81 Bipolar II disorder; E66.09 Other obesity due to excess calories; M25.50 Pain in unspecified joint; H81.10 Benign paroxysmal vertigo, unspecified ear; E11.65 Type 2 diabetes mellitus with hyperglycemia; F17.210 Nicotine dependence, cigarettes, uncomplicated; Z23 Encounter for immunization; Z79.4 Long term (current) use of insulin; Z68.43 Body mass index [BMI] 50.0-59.9, adult | CPT/HCPCS: 83036; 90471; 90472; 90677; 90715; 96127; 99212; 99396 ==